=== PATIENT | female | born 1965 | race Caucasian/White ===

== ENCOUNTER 2023-11-24 16:36 | Observation (INO) ==
--- NOTE | 2023-11-24 16:41 | ED Triage Note ---
Date of Service November 24, 2023 Provider in Triage Author: Meghan Lujan History of Present Illness This patient was briefly evaluated while in triage. An abbreviated physical exam was performed. This patient is a 58-year-old Female who presents to the ED for evaluation of chest pain in epigastric region into mid back began at 1530 today. Pt denies cardiac history, reports no nausea or vomiting. Physical Exam Initial orders for labs and / or imaging were placed and patient was placed in the waiting area until a bed is available. Please see further documentation for the full ED course.
[2023-11-24] MEDS: FAMOTIDINE 20MG IV PUSH 20 MG/5 ML SYR IV STA (17:17)
[2023-11-24] MEDS: ALUMINUM/MAGNESIUM SUSP 30 ML UDC PO STA (17:17)
[2023-11-24 17:36] LABS: Basophils # (auto) 0.04 K/uL (0.00-0.20); Eosinophils # (auto) 0.44 K/uL (0.00-0.50); Eosinophils % (auto) 10.5 %; Hematocrit (blood only) 38.6 % (37.0-47.0); Hemoglobin 12.6 g/dl (12.0-16.0); Lymphocytes # (auto) 1.15 K/uL (1.20-3.40); Lymphocytes % (auto) 27.4 %; Mean Corpuscular Hemoglobin 32.1 pg (25.0-34.0); Mean Corpuscular Hgb Conc 32.6 g/dL (32.0-36.0); Mean Corpuscular Volume 98.2 fL (80.0-100.0); Mean Platelet Volume 10.4 fL (9.4-12.4); Monocytes # (auto) 0.32 K/uL (0.11-0.59); Monocytes % (auto) 7.6 %; Neutrophils # (auto) 2.25 K/uL (1.40-6.50); Neutrophils % (auto) 53.5 %; Platelet Count 237 K/uL (130-400); RDW Coefficient of Variation 11.9 % (11.5-14.5); RDW Standard Deviation 43.8 fL (36.4-46.3); Red Blood Count 3.93 M/uL (4.20-5.40)
[2023-11-24 17:59] LABS: Albumin Globulin Ratio 1.7 (0.9-2); Albumin Level 4.2 gm/dl (3.4-5.0); BUN Creatinine Ratio 20.5 (10-20); Bilirubin,Total 0.3 mg/dl (0.2-1.0); Calcium 9.4 mg/dl (8.6-10.3); Creatinine Clr Calc Pharmacy 57.6 ml/min; Est GFR (African American) 88.8 ml/min; Est GFR (Non-African American) 76.6 ml/min; Globulin 2.5 gm/dl (2.5-4.0); Potassium 4.1 mmol/L (3.5-5.1); Total Protein 6.7 gm/dl (6.0-8.3)
[2023-11-24 18:04] LABS: Troponin I High Sensitivity 3.2 pg/ml (0-14)
--- NOTE | 2023-11-24 18:29 | XRay Report ---
SINGLE VIEW CHEST CLINICAL HISTORY: Atypical chest pain. FINDINGS: A PA chest radiograph is compared to chest x-ray and chest CT dated 06/15/2023. The cardiome diastinal silhouette is unremarkable. The lungs and pleural spaces are clear. No pneumothorax is seen . The bony thorax is grossly intact. There is mild thoracic scoliosis. IMPRESSION: No active disease in the chest. ACT 112: Negative or not required by law. Electronically signed by: Garrett Landrum M.D. 11/24/2023 6:27 PM
--- NOTE | 2023-11-24 20:35 | Emergency Department Note ---
Impression & Plan Abdominal pain, Acute pancreatitis ED Provider Note NAME: MERLENE HOOVER AGE: 58 SEX: F : 1965 ARRIVES VIA: Walk-In INFORMANT: Patient ED PROVIDER(S): Oz Winters DO CHIEF COMPLAINT: abdominal pain HPI: Patient is a 58-year-old female who presents to the ER for epigastric abdominal pain associated with an upset stomach. She notes it started around 3 PM. She tried to eat afterwards and felt significantly worse. She denies any headache or change in vision. No chest pain or shortness of breath. No arm or jaw pain. Is nonexertional. She notes it has been constant and sharp stabbing goes through to the back. Does have a history of previous gastric bypass. No dysuria, urgency, or frequency. No other exacerbating or remitting factors. ADDITIONAL HISTORY OBTAINED: Per HPI Chronic Medical/Social Conditions Affecting Care: Per HPI PAST MEDICAL HISTORY:See Below PAST SURGICAL HISTORY:See Below FAMILY HISTORY:See Below SOCIAL HISTORY:See Below HOME MEDICATIONS:See Below ALLERGIES:See Below VITALS:See Below PHYSICAL EXAMINATION: GENERAL: Sitting up in bed, alert, well appearing, well nourished, no distress, non-toxic EYE EXAM: normal conjunctiva. OROPHARYNX: no exudate, no erythema, lips, buccal mucosa, and tongue normal and mucous membranes are moist NECK: supple, no nuchal rigidity, no adenopathy, non-tender LUNGS: Clear to auscultation. Normal chest wall mechanics HEART: no murmurs, S1 normal and S2 normal ABDOMEN: abdomen soft, tender palpation epigastric region, normo-active bowel sounds, no masses, no rebound or guarding. UPPER EXTREMITIES: upper extremities are grossly normal. LOWER EXTREMITIES: No pitting edema. Calves are equal bilateral NEURO EXAM: Normal sensorium, cranial nerves II-XII grossly intact, normal speech, no gross weakness of arms, no gross weakness of legs. MEDICAL DECISION MAKING: Patient is a 58-year-old female with a past medical history a who presents the ER for above-stated complaint. IV was established blood work was obtained. Labs showed mild leukopenia at 4.3. No significant anemia. BMP along with LFTs bilirubin was unremarkable. Troponin was negative with symptoms have been present since around 3 AM. Lipase was elevated at 400. History is consistent with pancreatitis. She is tender in the epigastric region. UA was clean. CT abdomen pelvis was read by radiology showed no acute pathology. X-ray was unremarkable. Patient was given IV fluids, Zofran and morphine. She is updated bedside. Discussed the case with the hospitalist for further evaluation management treatment. Consults/Care Managements Discussions: Per [facility] Triage Nursing notes reviewed. Limited review of prior medical records performed Vital Signs: reviewed and remarkable for no significant abnormalities Differential diagnosis: Differential diagnoses includes but is not limited to gastritis, peptic ulcer disease, GERD, gallbladder disease, pancreatitis, small bowel obstruction, appendicitis, diverticulitis, hernia, urinary tract infection, torsion, [/ectopic (if female)], perforation, trauma, infectious. ER treatment provided: See below Diagnostics interpreted by me include EKG and cardiac monitoring as listed below: -Cardiac Monitoring: An order was placed for continuous cardiac monitoring. The monitor shows a rate of 70 with sinus rhythm. -ECG: Sinus rhythm rate of 68 Normal axis No PVCs QTc 418 -Laboratory studies:Interpreted by me as stated above in MDM and shown below. Imaging studies: Xrays: As interpreted by me: Portable AP upright 1 view of the chest shows no focal infiltrate CTs show: CT abdomen pelvis shows no acute pathology Procedures:none Critical Care: None Past Med/Surg History Surgical History (Updated 06/04/21 @ 07:47 by Tiffanie Rizvi) Hx of tonsillectomy H/O oral surgery History of gynecologic surgery uterine surgery History of gastric surgery Family History (Updated 06/04/21 @ 07:49 by Tiffanie Rizvi) Father Hypertension Bone cancer Diabetes Mother Hypertension Brother Diabetes Social History (Updated 06/10/21 @ 15:22 by LORENA Mota) Smoking Status: Never smoker Second Hand Exposure: Yes; Do You Dip or Chew Tobacco: No; Hx Alcohol Use: Yes Hx Substance Use: No Preferred Language: Monegasque Communication Ability: Effective Pourer Metal Required: No Beliefs That Will Affect Care: None Current Living Situation: Spouse Feels Safe at Home: Yes Safety Concerns: Feels Safe At This Time Assistive Devices: None Allergies Allergies Allergy/AdvReac Type Severity Reaction Status Date / Time erythromycin base Allergy Intermediate FULL BODY Verified 06/15/23 22:05 REDDENED RASH Home Meds Home Medications Medication Instructions Recorded Confirmed bupropion HCl 150 mg tablet,12 hr 150 mg PO AMHS 06/10/21 11/24/23 sustained-release (Wellbutrin SR) calcium citrate 250 mg PO BID 06/15/23 11/24/23 cholecalciferol (vitamin D3) 50 50 mcg PO DAILY 06/15/23 11/24/23 mcg (2,000 unit) capsule (Vitamin D3) cyanocobalamin (vitamin B-12) 2,500 mcg sublingual DAILY 06/15/23 11/24/23 2,500 mcg sublingual tablet (Vitamin B-12) duloxetine 30 mg capsule,delayed 30 mg PO DAILY 06/15/23 11/24/23 release negffhus-ttu-[id number]-[id number]-Ca carb-vit K 1 tab PO BID 06/15/23 11/24/23 18 mg iron-400 mcg-500 mg tablet psyllium husk 0.52 gram capsule 1.04 g PO HS 06/15/23 11/24/23 amoxicillin 875 mg-potassium 1 tab PO AMHS 11/24/23 11/24/23 clavulanate 125 mg tablet cyclobenzaprine 10 mg tablet 10 mg PO UD PRN Muscle Spasm 11/24/23 11/24/23 pantoprazole 40 mg tablet,delayed 40 mg PO BID 11/24/23 11/24/23 release tirzepatide 2.5 mg/0.5 mL 2.5 mg subcut WK 11/24/23 11/24/23 subcutaneous pen injector (Chrissy) Results & Data (ED) Vital Signs Vital Signs - 24 hr 11/24/23 16:40 11/24/23 19:16 11/24/23 19:51 Temperature 36.8 C Temperature Source Temporal Artery Scan Pulse Rate 81 Pulse Rate [Finger] 69 Pulse Rate from SpO2 Sensor Respiratory Rate 20 16 Respiratory Effort / Characteristics Non-Labored Spontaneous Non-Labored Respiratory Depth Normal Normal Respiratory Pattern Regular Blood Pressure 103/65 Blood Pressure [Right Arm] 92/57 L Blood Pressure Mean 77 Blood Pressure Mean [Right Arm] 68 Pulse Oximetry 100 100 Oxygen Delivery Method Room Air Room Air Room Air Sepsis New/Unexplained Change in Mental Status No Sepsis Action Taken by Nursing No Action Required 11/24/23 19:51 11/24/23 19:51 11/24/23 19:51 Temperature Temperature Source Pulse Rate 75 77 Pulse Rate [Finger] Pulse Rate from SpO2 Sensor 79 Respiratory Rate 14 Respiratory Effort / Characteristics Respiratory Depth Respiratory Pattern Blood Pressure Blood Pressure [Right Arm] Blood Pressure Mean Blood Pressure Mean [Right Arm] Pulse Oximetry 100 100 Oxygen Delivery Method Room Air Sepsis New/Unexplained Change in Mental Status Sepsis Action Taken by Nursing 11/24/23 19:51 11/24/23 19:54 11/24/23 20:00 Temperature Temperature Source Pulse Rate 68 Pulse Rate [Finger] 75 Pulse Rate from SpO2 Sensor 70 Respiratory Rate 18 17 Respiratory Effort / Characteristics Respiratory Depth Respiratory Pattern Blood Pressure 118/79 113/49 L Blood Pressure [Right Arm] 118/79 Blood Pressure Mean 88 70 Blood Pressure Mean [Right Arm] 92 Pulse Oximetry 100 67 L Oxygen Delivery Method Room Air Sepsis New/Unexplained Change in Mental Status Sepsis Action Taken by Nursing 11/24/23 20:01 11/24/23 20:32 11/24/23 21:00 Temperature Temperature Source Pulse Rate 68 69 74 Pulse Rate [Finger] Pulse Rate from SpO2 Sensor 68 69 76 Respiratory Rate 12 14 18 Respiratory Effort / Characteristics Respiratory Depth Respiratory Pattern Blood Pressure 107/69 Blood Pressure [Right Arm] Blood Pressure Mean 81 Blood Pressure Mean [Right Arm] Pulse Oximetry 100 99 99 Oxygen Delivery Method Sepsis New/Unexplained Change in Mental Status Sepsis Action Taken by Nursing 11/24/23 21:30 11/24/23 22:00 Temperature Temperature Source Pulse Rate 67 71 Pulse Rate [Finger] Pulse Rate from SpO2 Sensor 67 71 Respiratory Rate 14 23 Respiratory Effort / Characteristics Respiratory Depth Respiratory Pattern Blood Pressure 113/57 L 121/80 Blood Pressure [Right Arm] Blood Pressure Mean 75 93 Blood Pressure Mean [Right Arm] Pulse Oximetry 100 100 Oxygen Delivery Method Sepsis New/Unexplained Change in Mental Status Sepsis Action Taken by Nursing Laboratory Data 11/24/23 17:05 11/24/23 17:05 Lab Results 11/24/23 Range/Units 17:05 WBC 4.20 L (4.8-10.8) K/ul RBC 3.93 L (4.20-5.40) M/uL Hgb 12.6 (12.0-16.0) g/dl Hct 38.6 (37.0-47.0) % MCV 98.2 (80.0-100.0) fL MCH 32.1 (25.0-34.0) pg MCHC 32.6 (32.0-36.0) g/dL RDW Std Deviation 43.8 (36.4-46.3) fL RDW Coeff of Derek 11.9 (11.5-14.5) % Plt Count 237 (130-400) K/uL MPV 10.4 (9.4-12.4) fL Immature Gran % (Auto) 0.0 % Neut % (Auto) 53.5 % Lymph % (Auto) 27.4 % [place] % (Auto) 7.6 % Eos % (Auto) 10.5 % Baso % (Auto) 1.0 % Neut # (Auto) 2.25 (1.40-6.50) K/uL Lymph # (Auto) 1.15 L (1.20-3.40) K/uL [place] # (Auto) 0.32 (0.11-0.59) K/uL Eos # (Auto) 0.44 (0.00-0.50) K/uL Baso # (Auto) 0.04 (0.00-0.20) K/uL Immature Gran # (Auto) 0.00 L (0.01-0.20) K/uL Sodium 137 (136-145) mmol/L Potassium 4.1 (3.5-5.1) mmol/L Chloride 104 (98-107) mmol/L Carbon Dioxide 29 (21-32) mmol/L Anion Gap 4 (3-11) BUN 17 (6-23) mg/dl Creatinine 0.83 (0.6-1.2) mg/dl Est Cr Clr Drug Dosing 57.6 ml/min Est GFR ( Amer) 88.8 ml/min Est GFR (Non-Af Amer) 76.6 ml/min BUN/Creatinine Ratio 20.5 H (10-20) Glucose 128 H (70-99(Fasting)) mg/dl Calcium 9.4 (8.6-10.3) mg/dl Total Bilirubin 0.3 (0.2-1.0) mg/dl AST 32 (13-39) U/L ALT 43 (7-52) U/L Alkaline Phosphatase 82 (34-104) U/L Troponin I High Sens 3.2 (0-14) pg/ml Total Protein 6.7 (6.0-8.3) gm/dl Albumin 4.2 (3.4-5.0) gm/dl Globulin 2.5 (2.5-4.0) gm/dl Albumin/Globulin Ratio 1.7 (0.9-2) Lipase 381 H (11-82) U/L Administered Medications Lactated Ringer's (Lr) 1,000 mls @ 100 mls/hr IV .Q10H ONE Stop: 11/25/23 07:39 Last Admin: 11/25/23 00:03 Dose: 100 mls/hr Documented By: NOBLE Pantoprazole Sodium (Pantoprazole 40 Mg Tab) 40 mg PO BID ARDEN Stop: 12/24/23 23:32 Last Admin: 11/25/23 00:03 Dose: 40 mg Documented By: NOBLE Discontinued Medications Al Hydrox/Mg Hydrox/Simethicone (Aluminum/Magnesium Susp 30 Ml Udc) 15 ml PO NOW STA Stop: 11/24/23 16:44 Last Admin: 11/24/23 17:17 Dose: 15 ml Documented By: BINDU Famotidine (Pepcid 20mg Iv Push) 20 mg in 5 mls @ 2.5 mls/min IV NOW STA Stop: 11/24/23 16:44 Last Admin: 11/24/23 17:17 Dose: 2.5 mls/min Documented By: BINDU Sodium Chloride (Nss) 1,000 mls @ 999 mls/hr IV .Q1H1M ONE Stop: 11/24/23 21:33 Last Infusion: 11/25/23 00:14 Dose: Infused Documented By: Admin: 11/24/23 21:33 Dose: 999 mls/hr Documented By: ZULEMA Ioversol (Optiray 320 100ml) 93 ml IV ONCE ONE Stop: 11/24/23 20:40 Last Admin: 11/24/23 20:40 Dose: 93 ml Documented By: MENA Morphine Sulfate (Morphine Sulfate 4 Mg/Ml 1 Ml Carp\Vial) 4 mg IV NOW STA Stop: 11/24/23 21:10 Last Admin: 11/24/23 21:34 Dose: 4 mg Documented By: ZULEMA Ondansetron HCl (Ondansetron Inj 2 Mg/Ml 2 Ml Vial) 4 mg IV NOW STA Stop: 11/24/23 20:34 Last Admin: 11/24/23 21:34 Dose: 4 mg Documented By: ZULEMA Imaging Data Radiologist's Impression: Chest X-Ray 11/24/23 16:41 SINGLE VIEW CHEST CLINICAL HISTORY: Atypical chest pain. FINDINGS: A PA chest radiograph is compared to chest x-ray and chest CT dated 06/15/2023. The cardiomediastinal silhouette is unremarkable. The lungs and pleural spaces are clear. No pneumothorax is seen. The bony thorax is grossly intact. There is mild thoracic scoliosis. IMPRESSION: No active disease in the chest. ACT 112: Negative or not required by law. Electronically signed by: Garrett Landrum M.D. 11/24/2023 6:27 PM Abdomen/Pelvis CT 11/24/23 20:32 Exam(s): CT ABDOMEN + PELVIS With Contrast IV Amt: OPTIRAY 320 93ML EXAM: CT Abdomen and Pelvis With Intravenous Contrast CLINICAL HISTORY: Reason for exam: abd pain ? Pancreatitis. TECHNIQUE: Axial computed tomography images of the abdomen and pelvis with intravenous contrast. CTDI is 7.15 mGy and DLP is 338.09 mGy-cm. Automated exposure control was utilized for the study. A dose lowering technique was utilized adhering to the principles of ALARA. CONTRAST: Patient received OPTIRAY 320 93ML of IV contrast COMPARISON: No relevant prior studies available. FINDINGS: Lung bases: Unremarkable. No mass. No consolidation. ABDOMEN: Liver: Unremarkable. No mass. Gallbladder and bile ducts: Unremarkable. No calcified stones. No ductal dilation. Pancreas: Unremarkable. No mass. No ductal dilation. Spleen: Unremarkable. No splenomegaly. Adrenals: Unremarkable. No mass. Kidneys and ureters: Unremarkable. No solid mass. No hydronephrosis. Stomach and bowel: Wall thickening of small bowel, correlate for enteritis. Ethan-en-Y gastric bypass. No obstruction of the jejunojejunostomy. PELVIS: Appendix: Appendectomy. Bladder: Unremarkable. No mass. Reproductive: Unremarkable as visualized. ABDOMEN and PELVIS: Intraperitoneal space: Unremarkable. No free air. No significant fluid collection. Bones/joints: Degenerative changes of the spine. No acute fracture. No dislocation. Soft tissues: Unremarkable. Vasculature: Unremarkable. No abdominal aortic aneurysm. Lymph nodes: Unremarkable. No enlarged lymph nodes. IMPRESSION: 1. Wall thickening of small bowel, correlate for enteritis. 2. Ethan-en-Y gastric bypass. No obstruction of the jejunojejunostomy. Electronically signed by: Mihai Ragland MD 11/24/23 20:54 PM Gallbladder Ultrasound 11/24/23 22:05 Exam(s): US GALLBLADDER EXAM: US Abdomen Limited, Gallbladder CLINICAL HISTORY: Reason for exam: abd pain. TECHNIQUE: Real-time ultrasound of the right upper quadrant with image documentation. COMPARISON: Abdominal ultrasound from November 24, 2023 FINDINGS: Liver: The liver is mildly fatty infiltrated but normal in size measuring 14.5 cm. No focal liver mass lesion is seen. The portal vein is patent with normal hepatopetal flow. Gallbladder: The gallbladder is distended but nondilated. No gallstones, wall thickening, or surrounding fluid. Common bile duct: The common bile duct is nondilated measuring 5 mm. Pancreas: The pancreas is most obscured by bowel gas. Right kidney: The right kidney measures 8.6 cm. Free fluid: There is a trace amount of free fluid adjacent to the liver. IMPRESSION: No acute findings in the right upper quadrant. Electronically signed by: Raul Vaca MD 11/25/23 00:01 AM Discharge Plan Visit Data Chief Complaint: Chest Pain Stated Complaint: CENTRAL CHEST PAIN/GOES THROUGH MIDDLE OF BACK ED Provider: Oz Winters Discharge Problem: Abdominal pain, Acute pancreatitis Patient Disposition: Admitted As Inpatient Discharge Instructions Interventions: ED Discharge Assessment Last Done: 11/24/23 22:45 Discharge Problem: Abdominal pain Qualifiers: Abdominal location: unspecified location Qualified Code(s): R10.9 - Unspecified abdominal pain Acute pancreatitis Qualifiers: Pancreatitis type: unspecified pancreatitis type Acute pancreatitis complication: unspecified Qualified Code(s): K85.90 - Acute pancreatitis without necrosis or infection, unspecified
[2023-11-24] MEDS: OPTIRAY 320 100ml IV ONE (20:40)
--- NOTE | 2023-11-24 20:55 | CT Scan Report ---
Exam(s): CT ABDOMEN + PELVIS With Contrast IV Amt: OPTIRAY 320 93ML EXAM: CT Abdomen and Pelvis With Intravenous Contrast CLINICAL HISTORY: Reason for exam: abd pain ? Pancreatitis. TECHNIQUE: Axial computed tomography images of the abdomen and pelvis with intravenous contrast. CTDI is 7.15 mGy and DLP is 338.09 mGy-cm. Automated exposure control was utilized for the study. A dose lowering technique was utilized adhering to the principles of ALARA. CONTRAST: Patient received OPTIRAY 320 93ML of IV contrast COMPARISON: No relevant prior studies available. FINDINGS: Lung bases: Unremarkable. No mass. No consolidation. ABDOMEN: Liver: Unremarkable. No mass. Gallbladder and bile ducts: Unremarkable. No calcified stones. No ductal dilation. Pancreas: Unremarkable. No mass. No ductal dilation. Spleen: Unremarkable. No splenomegaly. Adrenals: Unremarkable. No mass. Kidneys and ureters: Unremarkable. No solid mass. No hydronephrosis. Stomach and bowel: Wall thickening of small bowel, correlate for enteritis. Ethan-en-Y gastric bypass. No obstruction of the jejunojejunostomy. PELVIS: Appendix: Appendectomy. Bladder: Unremarkable. No mass. Reproductive: Unremarkable as visualized. ABDOMEN and PELVIS: Intraperitoneal space: Unremarkable. No free air. No significant fluid collection. Bones/joints: Degenerative changes of the spine. No acute fracture. No dislocation. Soft tissues: Unremarkable. Vasculature: Unremarkable. No abdominal aortic aneurysm. Lymph nodes: Unremarkable. No enlarged lymph nodes. IMPRESSION: 1. Wall thickening of small bowel, correlate for enteritis. 2. Ethan-en-Y gastric bypass. No obstruction of the jejunojejunostomy. Electronically signed by: Mihai Ragland MD 11/24/23 20:54 PM
[2023-11-24] MEDS: SODIUM CHLORIDE 0.9% 1,000 ML IV ONE (21:33)
[2023-11-24] MEDS: MoRPHine SULFATE 4 MG/ML 1 ML CARP\\VIAL IV STA (21:34)
[2023-11-24] MEDS: ONDANSETRON INJ 2 MG/ML 2 ML VIAL IV STA (21:34)
--- NOTE | 2023-11-24 22:05 | History & Physical Report ---
Date of Service November 24, 2023 Assessment & Plan (1) Abdominal pain: Plan: With lipase elevation (elevation noted on other occasions) Possibly from enteritis/diarrheal illness rule out C. difficile given recent antibiotic Rx CT imaging negative for pancreatitis Reactive hypoglycemia on Mounjaro history gastric bypass Patient questioning DM2 diagnosis in outpatient EMR records. Outpatient Endocrinology notes do not mention DM2 diagnosis. Mounjaro given for reactive hypoglycemia post gastric bypass as per patient. All outpatient hemoglobin A1cs on record less than 5.6. hx NAFLD hypothyroidism, currently not on maintenance medications, euthyroid as of out patient TSH from 2 years ago anxiety/mood disorder, stable OBS GMF Analgesia Stool C. difficile Supportive management for enteritis if C. difficile negative GI consult if with worsening abdominal pain Staff message sent to PCP to clarify DM2 diagnosis in patient's EMR. DVT prophylaxis. Lovenox subcu Full code Text document was generated using [employer] voice recognition software. It may contain grammatical or spelling errors. Kindly contact undersigned for clarification of any documentation item in question. History of Present Illness Chief Complaint: Abdominal pain Primary Care Provider: Bin Neely MD History obtained from patient, family, and records. Medical history significant for history gastric bypass, NAFLD, hypothyroidism, reactive hypoglycemia on Mounjaro, STELLA not on CPAP, anxiety/mood disorder. Few weeks history of sinus congestion symptoms and postnasal drip. Occasional burning sensation in the throat. Patient seen at PCPs office last week. Augmentin course prescribed for possible sinusitis. Protonix prescribed for possible GERD. Diarrhea symptoms noted at home without unusual abdominal pain. GERD symptoms actually improved as per patient. No fever, no chills. This afternoon, patient noted epigastric discomfort going to her back. Some nausea symptoms. No chest pain, no SOB. Patient brought to ER by for evaluation. 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 Allergies Allergy/AdvReac Type Severity Reaction Status Date / Time erythromycin base Allergy Intermediate FULL BODY Verified 06/15/23 22:05 REDDENED RASH Home Medications Medication Instructions Recorded Confirmed Type bupropion HCl 150 mg tablet,12 hr 150 mg PO AMHS 06/10/21 11/24/23 History sustained-release (Wellbutrin SR) calcium citrate 250 mg PO BID 06/15/23 11/24/23 History cholecalciferol (vitamin D3) 50 50 mcg PO DAILY 06/15/23 11/24/23 History mcg (2,000 unit) capsule (Vitamin D3) cyanocobalamin (vitamin B-12) 2,500 mcg sublingual DAILY 06/15/23 11/24/23 History 2,500 mcg sublingual tablet (Vitamin B-12) duloxetine 30 mg capsule,delayed 30 mg PO DAILY 06/15/23 11/24/23 History release [id number]-ezl-pfnk-FA-Ca carb-vit K 1 tab PO BID 06/15/23 11/24/23 History 18 mg iron-400 mcg-500 mg tablet psyllium husk 0.52 gram capsule 1.04 g PO HS 06/15/23 11/24/23 History amoxicillin 875 mg-potassium 1 tab PO AMHS 11/24/23 11/24/23 History clavulanate 125 mg tablet cyclobenzaprine 10 mg tablet 10 mg PO UD PRN Muscle Spasm 11/24/23 11/24/23 History pantoprazole 40 mg tablet,delayed 40 mg PO BID 11/24/23 11/24/23 History release tirzepatide 2.5 mg/0.5 mL 2.5 mg subcut WK 11/24/23 11/24/23 History subcutaneous pen injector (Kennyunvanessa) Past Med/Surg History Surgical History Hx of tonsillectomy H/O oral surgery History of gynecologic surgery uterine surgery History of gastric surgery Family History Father Hypertension Bone cancer Diabetes Mother Hypertension Brother Diabetes Social History Smoking Status: Never smoker Second Hand Exposure: Yes; Do You Dip or Chew Tobacco: No; Hx Alcohol Use: Yes Hx Substance Use: No Preferred Language: Italian Communication Ability: Effective Cancer Registry Coordinator Required: No Beliefs That Will Affect Care: None Current Living Situation: Spouse Feels Safe at Home: Yes Safety Concerns: Feels Safe At This Time Assistive Devices: None Review of Systems Review of Systems: As per HPI, all other systems reviewed and negative Physical Exam Physical Exam: GENERAL: Comfortable, pleasant, no respiratory distress SKIN: Normal color, warm HEENT: [place] palpebral conjunctivae, no ptosis, dry buccal mucosa NECK : Supple, no tenderness CHEST : CTA, no tenderness HEART : RRR, no obvious murmurs ABDOMEN: no distention, epigastric tenderness EXTREMITIES : No LE swelling/tenderness, no other conspicuous deformities noted NEUROLOGIC : Coherent, no facial asymmetry, no other gross focality Results & Data Results & Data Vital Signs (Past 12 Hours) Vital Signs Temp Pulse Pulse Resp BP BP Pulse Ox 11/24/23 19:54 75 18 118/79 100 11/24/23 19:51 75 11/24/23 19:51 100 11/24/23 19:51 11/24/23 19:16 69 16 92/57 L 100 11/24/23 16:40 36.8 C 81 20 103/65 100 O2 Del Method 11/24/23 19:54 Room Air 11/24/23 19:51 11/24/23 19:51 Room Air 11/24/23 19:51 Room Air 11/24/23 19:16 Room Air 11/24/23 16:40 Room Air Laboratory Results Laboratory Results WBC 4.20 K/ul (4.8-10.8) L 11/24/23 17:05 RBC 3.93 M/uL (4.20-5.40) L 11/24/23 17:05 Hgb 12.6 g/dl (12.0-16.0) 11/24/23 17:05 Hct 38.6 % (37.0-47.0) 11/24/23 17:05 MCV 98.2 fL (80.0-100.0) 11/24/23 17:05 MCH 32.1 pg (25.0-34.0) 11/24/23 17:05 MCHC 32.6 g/dL (32.0-36.0) 11/24/23 17:05 RDW Std Deviation 43.8 fL (36.4-46.3) 11/24/23 17:05 RDW Coeff of Derek 11.9 % (11.5-14.5) 11/24/23 17:05 Plt Count 237 K/uL (130-400) 11/24/23 17:05 MPV 10.4 fL (9.4-12.4) 11/24/23 17:05 Immature Gran % (Auto) 0.0 % 11/24/23 17:05 Neut % (Auto) 53.5 % 11/24/23 17:05 Lymph % (Auto) 27.4 % 11/24/23 17:05 [place] % (Auto) 7.6 % 11/24/23 17:05 Eos % (Auto) 10.5 % 11/24/23 17:05 Baso % (Auto) 1.0 % 11/24/23 17:05 Neut # (Auto) 2.25 K/uL (1.40-6.50) 11/24/23 17:05 Lymph # (Auto) 1.15 K/uL (1.20-3.40) L 11/24/23 17:05 [place] # (Auto) 0.32 K/uL (0.11-0.59) 11/24/23 17:05 Eos # (Auto) 0.44 K/uL (0.00-0.50) 11/24/23 17:05 Baso # (Auto) 0.04 K/uL (0.00-0.20) 11/24/23 17:05 Immature Gran # (Auto) 0.00 K/uL (0.01-0.20) L 11/24/23 17:05 Sodium 137 mmol/L (136-145) 11/24/23 17:05 Potassium 4.1 mmol/L (3.5-5.1) 11/24/23 17:05 Chloride 104 mmol/L (98-107) 11/24/23 17:05 Carbon Dioxide 29 mmol/L (21-32) 11/24/23 17:05 Anion Gap 4 (3-11) 11/24/23 17:05 BUN 17 mg/dl (6-23) 11/24/23 17:05 Creatinine 0.83 mg/dl (0.6-1.2) 11/24/23 17:05 Est Cr Clr Drug Dosing 57.6 ml/min 11/24/23 17:05 Est GFR ( Amer) 88.8 ml/min 11/24/23 17:05 Est GFR (Non-Af Amer) 76.6 ml/min 11/24/23 17:05 BUN/Creatinine Ratio 20.5 (10-20) H 11/24/23 17:05 Glucose 128 mg/dl (70-99(Fasting)) H 11/24/23 17:05 Calcium 9.4 mg/dl (8.6-10.3) 11/24/23 17:05 Total Bilirubin 0.3 mg/dl (0.2-1.0) 11/24/23 17:05 AST 32 U/L (13-39) 11/24/23 17:05 ALT 43 U/L (7-52) 11/24/23 17:05 Alkaline Phosphatase 82 U/L (34-104) 11/24/23 17:05 Troponin I High Sens 3.2 pg/ml (0-14) 11/24/23 17:05 Total Protein 6.7 gm/dl (6.0-8.3) 11/24/23 17:05 Albumin 4.2 gm/dl (3.4-5.0) 11/24/23 17:05 Globulin 2.5 gm/dl (2.5-4.0) 11/24/23 17:05 Albumin/Globulin Ratio 1.7 (0.9-2) 11/24/23 17:05 Lipase 381 U/L (11-82) H 11/24/23 17:05 Impressions Chest X-Ray 11/24/23 16:41 SINGLE VIEW CHEST CLINICAL HISTORY: Atypical chest pain. FINDINGS: A PA chest radiograph is compared to chest x-ray and chest CT dated 06/15/2023. The cardiomediastinal silhouette is unremarkable. The lungs and pleural spaces are clear. No pneumothorax is seen. The bony thorax is grossly intact. There is mild thoracic scoliosis. IMPRESSION: No active disease in the chest. ACT 112: Negative or not required by law. Electronically signed by: Garrett Landrum M.D. 11/24/2023 6:27 PM Abdomen/Pelvis CT 11/24/23 20:32 Exam(s): CT ABDOMEN + PELVIS With Contrast IV Amt: OPTIRAY 320 93ML EXAM: CT Abdomen and Pelvis With Intravenous Contrast CLINICAL HISTORY: Reason for exam: abd pain ? Pancreatitis. TECHNIQUE: Axial computed tomography images of the abdomen and pelvis with intravenous contrast. CTDI is 7.15 mGy and DLP is 338.09 mGy-cm. Automated exposure control was utilized for the study. A dose lowering technique was utilized adhering to the principles of ALARA. CONTRAST: Patient received OPTIRAY 320 93ML of IV contrast COMPARISON: No relevant prior studies available. FINDINGS: Lung bases: Unremarkable. No mass. No consolidation. ABDOMEN: Liver: Unremarkable. No mass. Gallbladder and bile ducts: Unremarkable. No calcified stones. No ductal dilation. Pancreas: Unremarkable. No mass. No ductal dilation. Spleen: Unremarkable. No splenomegaly. Adrenals: Unremarkable. No mass. Kidneys and ureters: Unremarkable. No solid mass. No hydronephrosis. Stomach and bowel: Wall thickening of small bowel, correlate for enteritis. Ethan-en-Y gastric bypass. No obstruction of the jejunojejunostomy. PELVIS: Appendix: Appendectomy. Bladder: Unremarkable. No mass. Reproductive: Unremarkable as visualized. ABDOMEN and PELVIS: Intraperitoneal space: Unremarkable. No free air. No significant fluid collection. Bones/joints: Degenerative changes of the spine. No acute fracture. No dislocation. Soft tissues: Unremarkable. Vasculature: Unremarkable. No abdominal aortic aneurysm. Lymph nodes: Unremarkable. No enlarged lymph nodes. IMPRESSION: 1. Wall thickening of small bowel, correlate for enteritis. 2. Ethan-en-Y gastric bypass. No obstruction of the jejunojejunostomy. Electronically signed by: Mihai Ragland MD 11/24/23 20:54 PM Diagnostic Findings EKG as per my interpretation : Rate 70, NSR, normal axis, no ischemia (1) Abdominal pain Abdominal location: unspecified location Qualified Code(s): R10.9 - Unspecified abdominal pain
[2023-11-24] MEDS ORDERED: oxyCODONE HCL IR 5 MG TAB (IMMEDIATE RELEASE) PO PRN (22:08)
[2023-11-24 23:05] LABS: Appearance Urine Clear (Clear); Bacteria Urine Automated None Seen (None Seen); Bilirubin Urine Negative (Negative); Blood Urine 1+ (Negative); Cast Urine Automated 0-2 /lpf (0-2); Color Urine Yellow; Epithelial Cell Urine Auto 0-2 /hpf (0-2); Glucose Urine UA Negative (Negative); Ketones Urine 1+ (Negative); Leukocyte Esterase Urine Negative (Negative); Nitrite Urine Negative (Negative); Protein Urine Negative (Negative); RBC Urine Automated 0-2 /hpf (0-2); Urobilinogen Urine Negative (Negative); WBC Urine Automated 0-5 /hpf (0-5); pH Urine 5.5 (4.5-7.5)
[2023-11-25] MEDS: PANTOprazole 40 MG TAB PO SCH (00:03)
[2023-11-25] MEDS: LACTATED RINGER'S 1,000 ML IV ONE (00:03)
--- NOTE | 2023-11-25 00:03 | Ultrasound Report ---
Exam(s): US GALLBLADDER EXAM: US Abdomen Limited, Gallbladder CLINICAL HISTORY: Reason for exam: abd pain. TECHNIQUE: Real-time ultrasound of the right upper quadrant with image documentation. COMPARISON: Abdominal ultrasound from November 24, 2023 FINDINGS: Liver: The liver is mildly fatty infiltrated but normal in size measuring 14.5 cm. No focal liver mass lesion is seen. The portal vein is patent with normal hepatopetal flow. Gallbladder: The gallbladder is distended but nondilated. No gallstones, wall thickening, or surrounding fluid. Common bile duct: The common bile duct is nondilated measuring 5 mm. Pancreas: The pancreas is most obscured by bowel gas. Right kidney: The right kidney measures 8.6 cm. Free fluid: There is a trace amount of free fluid adjacent to the liver. IMPRESSION: No acute findings in the right upper quadrant. Electronically signed by: Raul Vaca MD 11/25/23 00:01 AM
[2023-11-25 06:55] LABS: Basophils # (auto) 0.04 K/uL (0.00-0.20); Eosinophils % (auto) 10.3 %; Hematocrit (blood only) 33.6 % (37.0-47.0); Hemoglobin 11.2 g/dl (12.0-16.0); Immature Granulocytes # (auto) 0.01 K/uL (0.01-0.20); Immature Granulocytes % (auto) 0.3 %; Lymphocytes # (auto) 1.64 K/uL (1.20-3.40); Lymphocytes % (auto) 42.1 %; Mean Corpuscular Hemoglobin 32.3 pg (25.0-34.0); Mean Corpuscular Hgb Conc 33.3 g/dL (32.0-36.0); Mean Corpuscular Volume 96.8 fL (80.0-100.0); Mean Platelet Volume 9.8 fL (9.4-12.4); Monocytes # (auto) 0.35 K/uL (0.11-0.59); Neutrophils # (auto) 1.46 K/uL (1.40-6.50); Neutrophils % (auto) 37.3 %; Platelet Count 177 K/uL (130-400); RDW Coefficient of Variation 12.1 % (11.5-14.5); RDW Standard Deviation 43.1 fL (36.4-46.3); Red Blood Count 3.47 M/uL (4.20-5.40)
[2023-11-25 07:19] LABS: Albumin Globulin Ratio 1.7 (0.9-2); Albumin Level 3.4 gm/dl (3.4-5.0); BUN Creatinine Ratio 16.3 (10-20); Bilirubin,Total 0.4 mg/dl (0.2-1.0); Calcium 8.8 mg/dl (8.6-10.3); Creatinine Clr Calc Pharmacy 52.5 ml/min; Est GFR (African American) 85.1 ml/min; Est GFR (Non-African American) 73.4 ml/min; Potassium 4.5 mmol/L (3.5-5.1); Total Protein 5.4 gm/dl (6.0-8.3)
[2023-11-25] MEDS: ACETAMINOPHEN 325 MG TAB PO PRN (07:21)
[2023-11-25] MEDS: buPROPion SR 150 MG TABCR PO SCH (07:22)
[2023-11-25] MEDS: DULoxetine HCL 30 MG CAP PO SCH (07:22)
[2023-11-25] MEDS: PROMETHAZINE HCL 6.25 MG in SODIUM CHLORIDE 0.9% 50 ML IV PRN (07:57)
--- NOTE | 2023-11-25 11:22 | Gastrointestinal Consultation ---
Date of Consultation November 25, 2023 Assessment & Plan (1) Abdominal pain: Viral enteritis vs pancreatitis vs side effects from Mounjaro vs esophagitis vs PUD vs other -Given epigastric pain and elevated lipase, could treat like acute pancreatitis. Liquids as tolerated, IV fluid hydration. -Would obtain stool PCR given findings of enteritis and previous diarrhea symptoms. -Protonix 40 mg BID -Carafate 1 gm QID -Famotidine 20 mg BID -Consider outpatient EGD Supervising Physician Co-Signing Physician Notes Agree with SD Schneider as above Interviewed and examined independently and agree with above Abd: Soft, NT, ND, +BS Continue current therapy and supportive care History of Present Illness Reason for Consultation: post prandial abd pain ?enteritis in CT Attending Physician: Jake Gallegos MD History of Present Illness Patient is a 58 yo female with epigastric pain. She notes ongoing sinus congestion and postnasal drip for which she notes she was recently put on Protonix 40 mg BID & Augmentin for possible sinusitis. She has had ongoing burning in her esophagus over the past several weeks. She notes that she has post-prandial epigastric pain that has been worsening over time. She has intermittent elevation of lipase. She does take Mounjaro. She denies tobacco or NSAID use. She notes a day this week with diarrhea, but is not currently experiencing diarrhea. In the hospital, she had a CT that questioned enteritis. No evidence of pancreatitis on this scan. GB US unremarkable. H/H 11.2/33.6. Lipase 381. History significant for Ethan-en-y bypass. Allergies Allergy/AdvReac Type Severity Reaction Status Date / Time erythromycin base Allergy Intermediate FULL BODY Verified 06/15/23 22:05 REDDENED RASH Home Medications Medication Instructions Recorded Confirmed Type bupropion HCl 150 mg tablet,12 hr 150 mg PO AMHS 06/10/21 11/24/23 History sustained-release (Wellbutrin SR) calcium citrate 250 mg PO BID 06/15/23 11/24/23 History cholecalciferol (vitamin D3) 50 50 mcg PO DAILY 06/15/23 11/24/23 History mcg (2,000 unit) capsule (Vitamin D3) cyanocobalamin (vitamin B-12) 2,500 mcg sublingual DAILY 06/15/23 11/24/23 History 2,500 mcg sublingual tablet (Vitamin B-12) duloxetine 30 mg capsule,delayed 30 mg PO DAILY 06/15/23 11/24/23 History release dqmuwhfq-brz-iexk-FA-Ca carb-vit K 1 tab PO BID 06/15/23 11/24/23 History 18 mg iron-400 mcg-500 mg tablet psyllium husk 0.52 gram capsule 1.04 g PO HS 06/15/23 11/24/23 History amoxicillin 875 mg-potassium 1 tab PO AMHS 11/24/23 11/24/23 History clavulanate 125 mg tablet cyclobenzaprine 10 mg tablet 10 mg PO UD PRN Muscle Spasm 11/24/23 11/24/23 History pantoprazole 40 mg tablet,delayed 40 mg PO BID 11/24/23 11/24/23 History release tirzepatide 2.5 mg/0.5 mL 2.5 mg subcut WK 11/24/23 11/24/23 History subcutaneous pen injector (Chrissy) Patient History Surgical History Hx of tonsillectomy H/O oral surgery History of gynecologic surgery uterine surgery History of gastric surgery Family History Father Hypertension Bone cancer Diabetes Mother Hypertension Brother Diabetes Social History Smoking Status: Never smoker Second Hand Exposure: Yes; Do You Dip or Chew Tobacco: No; Hx Alcohol Use: Yes Hx Substance Use: No Preferred Language: Nepali Communication Ability: Effective 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 Beliefs That Will Affect Care: None Current Living Situation: Spouse Feels Safe at Home: Yes Safety Concerns: Feels Safe At This Time Assistive Devices: Glasses Review of Systems Constitutional: no fever and no chills Cardiovascular: no chest pain Gastrointestinal: + abdominal pain and + change in bowel h abits; no blood in stools Physical Exam Constitutional: well developed Respiratory: normal respiratory effort Cardiovascular: Rate/Rhythm: regular rate Gastrointestinal (Abdomen): normal bowel sounds, soft, nontender, no hepatosplenomegaly Results & Data Vital Signs (Past 12 Hours) Vital Signs Temp Pulse Resp BP Pulse Ox O2 Del Method 11/25/23 06:56 36.5 C 62 15 102/63 99 Room Air 11/24/23 23:45 36.6 C 91 H 18 105/43 L 93 Room Air PG Care Time/CCT Total # of Minutes Spent Total Time Spent with Patient: Total time spent is greater than 50% in coordination of care (as documented) at patient's floor/unit and/or counseling patient: Coding Level of Care Code 93437 IN/OBS CONSULT LVL 4,60M Diagnoses Abdominal pain R10.9 Abdominal location: unspecified location (1) Abdominal pain Abdominal location: unspecified location Qualified Code(s): R10.9 - Unspecified abdominal pain
[2023-11-25] MEDS: ENOXAPARIN INJ 40 MG/0.4 ML SYR SQ SCH (11:51)
[2023-11-25] MEDS: POLYETHYLENE (MIRALAX) 17 GM PACK PO PRN (13:25)
[2023-11-25] MEDS: SUCRALFATE 1 GM/10 ML UDC PO SCH (13:25)
[2023-11-25] MEDS ORDERED: MoRPHine SULFATE 2 MG/ML CARP IV PRN (14:03)
--- NOTE | 2023-11-25 14:04 | Hospitalist Progress Note ---
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 CT A/P negative for pancreatitis but possible enteritis. Had diarrhea few days back. Lipase 380. Seen by GI- recommendations noted. Will continue ivf, diet as tolerated, supportive treatment. On PPI, pepcid and carafate per GI and plan for OP EGD noted.Follow up labs in am. GI panel and C diff if she has diarrhea. H/o Ethan-en-Y gastric bypass- on Mounjaro Mood disorder- on bupropion/duloxetine DVT ppx- sc lovenox Dispo- pending symptomatic improvement Time spent- approx 35 mins Admission and Anticipated Discharge Date Admission Date: November 24, 2023 Subjective Patient was seen and examined at bedside. states she continues to have intermittent sharp abd pain. Ongoing for a week now, starts 30 mins after food intake and would subside in an hour. Had an episode of diarrhea on Tuesday. Has nausea and just got nausea medication. Tolerating clears. Review of Systems Review of Systems: All systems reviewed & are unremarkable except as noted in Subjective Physical Exam Physical Exam: General: Lying comfortably in bed, not in distress, on room air HEENT: EOMI, [place]IALU[place], MMM Chest: Clear breath sounds bilaterally, no wheezes or crackles CVS: Regular rate and rhythm, normal heart sounds, no murmur Abdomen: Soft, not distended, hyperactive bowel sounds Neuro: Awake, alert, oriented, conversing well, non focal Extremities: No cyanosis, clubbing or edema Results & Data Results & Data Vital Signs (Past 12 Hours) Vital Signs Temp Pulse Resp BP Pulse Ox O2 Del Method 11/25/23 06:56 36.5 C 62 15 102/63 99 Room Air (1) Acute pancreatitis Acute pancreatitis complication: unspecified Pancreatitis type: unspecified pancreatitis type Qualified Code(s): K85.90 - Acute pancreatitis without necrosis or infection, unspecified (2) Abdominal pain Abdominal location: unspecified location Qualified Code(s): R10.9 - Unspecified abdominal pain
[2023-11-25] MEDS: LACTATED RINGER'S 1,000 ML IV SCH (14:56)
--- OUTSIDE RECORDS SUMMARY | 2023-11-25 19:57 | External Medical Summary | Summary of Care ---
Author Name Unknown Organization [facility] Address [address] [place] [address] Phone [phone] Care Team Providers Care Lithopone Charger Name Role Phone Chin LAMB MD, Bin Truong Primary Care Provider [phone] Reason for Visit * Reason Comments Sinus Problem Encounter Details Date Type Department Care Team (Late st Contact Info) Description 11/16/2023 10:00 AM EDT Office Visit Family [facility] [address] [place] [address] Anshu Glynn MD [address] [place] [address] [place] [id number] Acute recurrent maxillary sinusitis*; Gastroesophageal reflux disease with esophagitis without hemorrhage Allergies Active Allergy Reactions Criticality Noted Date Comments Erythromycin Rash 06/02/2000 documented as of this encounter (statuses as of 11/16/2023) Medications Medication Sig Dispensed Refills Start Date End Date Status MULTIVITAMINS PO TABSIndications:Eso phageal reflux Take by mouth 2 times a day. 0 10/29/2005 Active VITAMIN D 2000 UNIT PO TABS daily 0 Active EXCEDRIN TENSION HEADACHE 500-65 MG PO TABS as needed 0 Active VITAMIN B-12 2500 MCG SL SUBL 5000mcg daily 0 Active ONETOUCH ULTRA BLUE STRPIndications:Pos tgastric surgery syndromes Use up to four times a day as directed 100 Strip 11 2014 Active albuterol (VENTOLIN HFA) 108 (90 BASE) MCG/ACT inhalerIndications: Dyspnea Inhale 2 Puffs by mouth 4 times a day. 1 Inhaler 3 12/30/2017 Active LORAzepam (ATIVAN) 0.5 MG TabletIndications:A nxiety state TAKE ONE TABLET BY MOUTH 2 TIMES A DAY NEEDED ANXIETY 60 Tab 0 02/15/2019 Active Ipratropium [place] 0.03 % Nasal Solution (Atrovent) Administer 2 Sprays into each nostril 2 times a day as needed for Rhinitis. 30 mL 12 05/06/2021 Active Calcium Citrate-Vitamin D3 315-6.25 MG-MCG Oral Tablet Take by mouth 2 times a day. 0 Active buPROPion HCl ER (SR) 150 MG Oral Tablet Extended Release 12 Hour (Wellbutrin SR) Take 1 Tablet by mouth in the morning and 1 Tablet before bedtime. 180 Tablet 2 12/11/2022 Active Triamcinolone Acetonide 0.1 % External Cream (Aristocort)Indicat ions:Rash and nonspecific skin eruption Apply to rash twice daily for two weeks. Avoid face and groin. Repeat as needed but give at least one week break before repeating. 454 g 1 01/10/2023 Active Mounjaro 2.5 MG/0.5ML Subcutaneous Solution Pen-injector (Tirzepatide)Indica tions:Type 2 diabetes mellitus with hemoglobin A1c goal of less than 7.0% ([facility]) Inject 2.5 mg under the skin once a week. 2 mL 11 06/15/2023 06/14/2024 Active Psyllium 0.52 GM Oral Capsule at bedtime. 0 06/15/2023 Active Cyclobenzaprine HCl 10 MG Oral Tablet (Flexeril)Indicatio ns:Cervical spondylosis Take 0.5-1 Tablets by mouth in the morning and 0.5-1 Tablets at noon and 0.5-1 Tablets before bedtime. 30 Tablet 5 06/20/2023 Active DULoxetine HCl 30 MG Oral Capsule Delayed Release Particles (Cymbalta) TAKE ONE CAPSULE BY MOUTH EVERY DAY IN THE MORNING 90 Capsule 3 08/15/2023 Active Amoxicillin-Pot Clavulanate 875-125 MG Oral Tablet (Augmentin)Indicati ons:Acute recurrent maxillary sinusitis Take 1 Tablet by mouth in the morning and 1 Tablet before bedtime. Do all this for 10 days. 20 Tablet 0 11/16/2023 11/26/2023 Active Pantoprazole Sodium 40 MG Oral Tablet Delayed Release (Protonix)Indicatio ns:Gastroesophageal reflux disease with esophagitis without hemorrhage one pill twice a day 30 minutes before meals. Do not crush, split or chew the tablet 60 Tablet 1 11/16/2023 Active documented as of this encounter (statuses as of 11/16/2023) Active Problems Problem Noted Date Diagnosed Date Type 2 diabetes mellitus with diabetic neuropath y 06/20/2023 Primary cutaneous marginal zone B-cell lymphoma 08/12/2020 Type 2 diabetes mellitus wit h hemoglobin A1c goal of less than 7.0% 06/13/2020 Lumbar radiculopathy 09/02/2011 Cervical spondylosis 09/02/2011 Pernicious anemia 07/13/2011 Other specified hypothyroidism 08/20/2009 Anxiety state 09/24/2008 Iron deficiency anemia 03/11/2008 Hypertrophic and atrophic condition of skin 06/09 ABDOMINAL/HIP PANNICULITIS 03/31/2005 ADVANCE DIRECTIVE INFORMATION 03/23/2005 Overview: No, Advance Directive brochure given to patient at prior appointment. 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 Abnormal results of liver function studies 05/05/2010 06/08/2018 Morbid obesity, BMI not known 06/07/2003 03/29/2017 Excessive menstruation 10/17/200006/08 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 08/2017 documented as of this encounter (statuses as of 11/16/2023) Immunizations Name Administration Dates Next Due COVID-19 mRNA, LNP-s, No Pre serve, 2-Dose Series (Pfizer) 11/21/2021,12/06/2020,11/15/2020 Hepatitis B Vaccine, Recombi nant, Adjuvanted, 20 mcg/mL (Heplisav-B) 03/14/2023 Hepatitis B, 20+ yrs 09/19/2023,05/16/2023 Pneumococcal Conjugate Vacci ne, 20-valent ([id number]) 03/14/2023 Pneumococcal Polysaccharide PPV23 (Pneumovax) 08/12/2009 Seasonal Influenza, PF, 6 M & above, IM , (FluLaval or Fluzone) 04/23/2023,04/15/2022,05/11/2021,04/26,04/25/2017 Seasonal Influenza, Quadriva lent, No Preserve, IM 05/01/2020,04/18/2019,04/26/2018 Seasonal Influenza, Split, I IV3, With Preserve, Inj 04/29/2016,05/05/2015,04/30/2014,04/25,06/08/2011,07/28/2010,05/11/2009 ,06/24/2006 TDAP (age 10 and older)(Boostrix) 03/14/2023 TDAP (age 11 and older)(Adacel) 09/26/2011,11/13 Zoster Vaccine Recombinant (Shingrix) 05/16/2023 ,03/14/2023 documented as of this encounter Social History Tobacco Use Types Packs/Day Years Used Date Smoking Tobacco: Never Smokeless Tobacco: Never Alcohol Use Standard Drinks/Week Comments Yes 0 (1 standard drink = 0.6 oz pure alcohol) Usually about every 3 months, 1 or 2 PHQ-2 Answer Date Recorded PHQ-2 Score 7 02/12/2020 Hunger Vital Sign Answer Date Recorded Within the past 12 months, y ou worried that your food would run out before you got the money to buy more. Never true 11/14/19 24 Within the past 12 months, t he food you bought just didn't last and you didn't have money to get more. Never true 11/14/2023 Sex and Gender Information Value Date Recorded Sex Assigned at Female 01/15/2022 7:47 PM EDT Gender Identity Female 01/15/2022 7:47 PM EDT Sexual Orientation Straight 01/15/2022 7: 47 PM EDT Job Start Date Occupation Industry Not on file Not on file Not on file documented as of this encounter Last Filed Vital Signs Vital Sign Reading Time Taken Comments Blood Pressure 98/58 11/16/2023 9:55 AM EDT Pulse 72 11/16/2023 9:55 AM EDT Temperature 36.6 C (97.9 F) 11/16/2023 9:55 AM ED T Respiratory Rate 16 11/16/2023 9:55 AM EDT Oxygen Saturation 100% 11/16/2023 9:55 AM EDT Inhaled Oxygen Concentration - - Weight 50.1 kg (110 lb 6.4 oz) 11/16/2023 9:55 A M EDT Height - - Body Mass Index 20.86 07/18/2023 1:52 PM EST documented in this encounter Functional Status Functional Status Response Date of Assess ment Are you deaf or do you have serious difficulty h earing? No 04/20/2022 Are you blind or do you have serious difficulty seeing, even when wearing glasses? No 04/20/2022 Do you have serious difficul ty walking or climbing stairs? (5 years old or older) No 04/20/2022 Do you have difficulty dress ing or bathing? (5 years old or older) No 04/20/2022 Because of a physical, menta l, or emotional condition, do you have difficulty doing errands alone such as visiting a doctor s office or shopping? (15 years old or older) No 04/20/20 22 Cognitive Status Response Date of Assessm ent Because of a physical, menta l, or emotional condition, do you have serious difficulty concentrating, remembering, or making decisions? (5 years old or older) No 04/20/2022 documented as of this encounter Progress Notes * Anshu Glynn MD - 11/16/2023 9:58 AM EDT Nursing Notes: She Marcial LPN 11/16/23 0955 Sign at exiting of workspace Abida Mayberry presents with complaints of ongoing sinus problems and post nasal drip. Seen by ENTabout 1 year ago. As the day goes on she is making more mucus, had to clear her throat, gets a burning and the food even tsang her throat. ENT felt this was no infection and see GI. GI was not impressed. She has had agastric bypass Past Medical History: Diagnosis Date Allergic rhinitis due to other allergen Anemia 2011 Anxiety state 09/24/2008 Asthma, allergic Depressive disorder, not elsewhere classified 1995 hosp cch , resolved Displacement of cervical intervertebral disc without myelopathy 08/02/2002 Fatty liver 2012 Hypersomnia with sleep apnea does not wear CPAP Myalgia and myositis Other specified acquired hypothyroidism 08/20/2009 Past Surgical History: Procedure Laterality Date ANESTH, LOWER ABDOMEN HERNIA REPAIR 03/17/2005 ANESTHESIA FOR FAT LAYER REMOVAL 03/17/2005 panniculoplasty brachioplasty bilat C-/T-SPINE PARAVERTEBRAL FACET INJ, 1 LEVEL 11/21/2013 C-/T-SPINE PARAVERTEBRAL FACET INJ, 1 LEVEL performed by Hi Stinson DO at OR [facility] CARPAL TUNNEL SURGERY right COLONOSCOPY 2011 COLONOSCOPY, DIAGNOSTIC (RECTUM) 08/24/2022 prep-fair / normal scope, non-bleeding hemorrhoids / no specimens collected / 5 year recall / COLONOSCOPY FLEXIBLE PROXIMAL DIAGNOSTIC performed by Jasmin Mendes MD at ENDOSCOPY [facility] COLONOSCOPY, OUTSIDE PROCEDURE 03/10/2012 done at [facility] DENTAL SURGERY PROCEDURE NEC Dental Surgery Procedure EGD, FLEXIBLE, DIAGNOSTIC 11/25/2017 normal bx/ESOPHAGOGASTRODUODENOSCOPY (EGD), FLEXIBLE, TRANSORAL, DIAGNOSTIC performed by Jasmin Mendes MD at ENDOSCOPY [facility] GASTRIC BYPASS FOR OBESITY 01/2004 GASTRIC BYPASS FOR OBESITY 2004 INFORMATION labor and delivery x2 MAMMOGRAM - BILATERAL 10/29/2002 birad code 1 MAMMOGRAM - BILATERAL 01/12/2007 birad code 2 PAP SCREEN 12/03/2010 negative for malignancy REMOVE EXCESSIVE SKIN, OTHER AREA 10/03/2006 EXCISION EXCESSIVE SKIN AND SUBCUTANEOUS TISSUE OTHER performed by GRACIA CUMMINGS at OR [facility] REMOVE EXCESSIVE SKIN/TISSUE, ARM 10/03/2006 EXCISION EXCESSIVE SKIN AND SUBCUTANEOUS TISSUE ARM performed by GRACIA CUMMINGS at OR [facility] REMOVE EXCESSIVE SKIN/TISSUE, THIGH 10/03/2006 EXCISION EXCESSIVE SKIN AND SUBCUTANEOUS TISSUE THIGH performed by GRACIA CUMMINGS at OR [facility] REMOVE TONSILS & ADENOIDS, AGE 12+ Tonsillectomy/Adenoids,12+ Y/O REPAIR INITIAL INGUINAL HERNIA REDUCIBLE AGE 5 OR MORE 2004 SUCTION REMOVE FAT TISSUE, ARMS 10/03/2006 SUCTION ASSISTED LIPECTOMY UPPER EXTREMITY performed by GRACIA CUMMINGS at OR [facility] SUCTION REMOVE FAT TISSUE, LEGS 10/03/2006 SUCTION ASSISTED LIPECTOMY LOWER EXTREMITY performed by GRACIA CUMMINGS at OR [facility] TISSUE TRANSFER, LARGE/COMPLICATED 10/03/2006 ADJACENT TISSUE TRANSFER 30 PLUS SQ CM UNUSUAL performed by GRACIA CUMMINGS at OR [facility] UTERINE LEIOMYOMA US ABLAT,<200CC 01/11/2011 Review of patient's allergies indicates: Allergen Reactions Erythromycin Rash Social History Socioeconomic History Marital status: Spouse name: Duy Number of children: 2 Years of education: Not on file Highest education level: Not on file Occupational History Employer: [employer] 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 Employer: [employer] Tobacco Use Smoking status: Never Smokeless tobacco: Never Vaping Use Vaping Use: Never used Substance and Sexual Activity Alcohol use: Yes Comment: Usually about every 3 months, 1 or 2 Drug use: No Sexual activity: Yes Partners: Male control/protection: Surgical Comment: vas Other Topics Concern Service No Blood Transfusions No Caffeine Concern No Comment: once cup of tea per day Occupational Exposure No Hobby Hazards No Sleep Concern Yes Comment: insomnia Stress Concern Yes Weight Concern Yes Comment: 15 lbs gain over the past year Special Diet No Comment: history of gastric bypass Back Care No Exercise Yes Bike Helmet Not Asked Seat Belt Yes Self-Exams Yes Social History Narrative Not on file Social Determinants of Health Financial Resource Strain: Not on file Food Insecurity: No Food Insecurity (11/14/2023) Hunger Vital Sign Worried About Running Out of Food in the Last Year: Never true Ran Out of Food in the Last Year: Never true Transportation Needs: Not on file Physical Activity: Not on file Stress: Not on file Social Connections: Not on file Intimate Partner Violence: Not on file Housing Stability: Not on file Current Outpatient Medications Medication Sig Dispense Refill MULTIVITAMINS PO TABS Take by mouth 2 times a day. 0 VITAMIN D 2000 UNIT PO TABS daily EXCEDRIN TENSION HEADACHE 500-65 MG PO TABS as needed VITAMIN B-12 2500 MCG SL SUBL 5000mcg daily ONETOUCH ULTRA BLUE STRP Use up to four times a day as directed 100 Strip 11 albuterol (VENTOLIN HFA) 108 (90 BASE) MCG/ACT inhaler Inhale 2 Puffs by mouth 4 times a day. 1 Inhaler 3 LORAzepam (ATIVAN) 0.5 MG Tablet TAKE ONE TABLET BY MOUTH 2 TIMES A DAY NEEDED ANXIETY 60 Tab 0 Ipratropium [place] 0.03 % Nasal Solution (Atrovent) Administer 2 Sprays into each nostril 2 times a day as needed for Rhinitis. 30 mL 12 Calcium Citrate-Vitamin D3 315-6.25 MG-MCG Oral Tablet Take by mouth 2 times a day. buPROPion HCl ER (SR) 150 MG Oral Tablet Extended Release 12 Hour (Wellbutrin SR) Take 1 Tablet by mouth in the morning and 1 Tablet before bedtime. 180 Tablet 2 Triamcinolone Acetonide 0.1 % External Cream (Aristocort) Apply to rash twice daily for two weeks. Avoid face and groin. Repeat as needed but give at least one week break before repeating. 454 g 1 Mounjaro 2.5 MG/0.5ML Subcutaneous Solution Pen-injector (Tirzepatide) Inject 2.5 mg under the skinonce a week. 2 mL 11 Psyllium 0.52 GM Oral Capsule at bedtime. Cyclobenzaprine HCl 10 MG Oral Tablet (Flexeril) Take 0.5-1 Tablets by mouth in the morning and 0.5-1 Tablets at noon and 0.5-1 Tablets before bedtime. 30 Tablet 5 DULoxetine HCl 30 MG Oral Capsule Delayed Release Particles (Cymbalta) TAKE ONE CAPSULE BY MOUTH EVERY DAY IN THE MORNING 90 Capsule 3 No current facility-administered medications for this visit. Immunization History Administered Date(s) Administered COVID-19 mRNA, LNP-s, No Preserve, 2-Dose Series ([employer]) 11/15/2020, 12/06/2020, 11/21/2021 Hepatitis B Vaccine, Recombinant, Adjuvanted, 20 mcg/mL (Heplisav-B) 03/14/2023 Hepatitis B, 20+ yrs 05/16/2023, 09/19/2023 Pneumococcal Conjugate Vaccine, 20-valent ([id number]) 03/14/2023 Pneumococcal Polysaccharide PPV23 (Pneumovax) 08/12/2009 Seasonal Influenza, PF, 6 M & above, IM , (FluLaval or Fluzone) 04/25/2017, 04/26/2018, 05/11/2021, 04/15/2022, 04/23/2023 Seasonal Influenza, Quadrivalent, No Preserve, IM 04/26/2018, 04/18/2019, 05/01/2020 Seasonal Influenza, Split, IIV3, With Preserve, Inj 06/24/2006, 05/11/2009, 07/28/2010, 06/08/2011,04/25/2013, 04/30/2014, 05/05/2015, 04/29/2016 TDAP (age 10 and older)(Boostrix) 03/14/2023 TDAP (age 11 and older)(Adacel) 11/13/2008, 09/26/2011 Vitamin B12 Injection 03/17/2004, 04/21/2005, 09/22/2006, 03/15/2007, 05/19/2007, 07/19/2007, 08/16/2007, 10/04/2007, 11/15/2007, 12/20/2007, 01/17/2008, 03/11/2008, 09/24/2008, 12/24/2008, 03/25/2009, 06/24/2009, 12/23/2009, 07/28/2010, 09/17/2010, 03/23/2011, 07/13/2011, 10/12/2011, 01/12/2012, 04/28/2012, 10/31/2012 Zoster Vaccine Recombinant (Shingrix) 03/14/2023, 05/16/2023 Lab Results Component Value Date/Time HEMOGLOBIN A1C - [facility] 4.9 06/15/2023 09:41 AM HEMOGLOBIN A1C - [facility] 5.5 03/09/2022 08:53 AM HEMOGLOBIN A1C - [facility] 5.5 06/20/2021 08:36 AM HEMOGLOBIN A1C - [facility] 4.9 11/16/2013 10:11 AM HEMOGLOBIN A1C - [facility] 5.1 09/23/2003 10:08 AM HEMOGLOBIN A1C - [facility] 5.2 05/10/2003 12:43 PM HEMOGLOBIN A1C POCT - [facility] 4.8 09/06/2022 01:01 PM Results for orders placed or performed in visit on 07/18/23 COMPREHENSIVE METABOLIC PANEL Result Value Ref Range BUN 20 6 - 20 mg/dL Creatinine 0.8 0.5 - 1.0 mg/dL Estimated Glomerular Filtration Rate >90 >=60 mL/min Sodium 141 135 - 146 mmol/L Potassium 4.7 3.5 - 5.1 mmol/L Chloride 104 98 - 107 mmol/L CO2 30 22 - 32 mmol/L Anion Gap 7 7 - 15 mmol/L Glucose 84 70 - 120 mg/dL Albumin 4.2 3.8 - 5.0 g/dL AST 38 (H) 10 - 35 U/L Alkaline Phosphatase 106 35 - 130 U/L Bilirubin, Total <0.2 <=1.2 mg/dL Calcium 9.3 8.4 - 10.2 mg/dL Protein 6.3 6.0 - 8.3 g/dL ALT 52 (H) 10 - 35 U/L Results for orders placed or performed in visit on 06/15/23 LIPID PANEL WITH DIRECT LDL IF TG IS HIGH Result Value Ref Range Triglycerides 48 <=174 mg/dL Cholesterol 186 <200 mg/dL HDL Cholesterol 106 >49 mg/dL Non-HDL Cholesterol 80 <=159 mg/dL LDL Cholesterol 70 <=129 mg/dL O: Blood pressure 98/58, pulse 72, temperature 36.6 C (97.9 F), temperature source Tympanic, resp. rate 16, weight 50.1 kg (110 lb 6.4 oz), SpO2 100%, not currently . General appearance: well developed, well nourished and in no acute distress. A: Acute recurrent maxillary sinusitis (Primary) - Amoxicillin-Pot Clavulanate 875-125 MG Oral Tablet (Augmentin); Take 1 Tablet by mouth in the morning and 1 Tablet before bedtime. Do all this for 10 days. Gastroesophageal reflux disease with esophagitis without hemorrhage - Pantoprazole Sodium 40 MG Oral Tablet Delayed Release (Protonix); one pill twice a day 30 minutesbefore meals. Do not crush, split or chew the tablet Specifically, this could be nasopharyngeal reflux. If she responds, that would help clear the air on what is going on. documented in this encounter Nursing Notes * She Marcial LPN - 11/16/2023 9:54 AM EDT Abida Mayberry presents with complaints of ongoing sinus problems and post nasal drip. Seen by ENTabout 1 year ago. documented in this encounter Plan of Treatment Upcoming Encounters Date Type Department Care Team (Late st Contact Info) Description 12/14/2023 8:40 AM EDT Office Visit Nutrition & Weight Management, [facility] [address] [place] [address] Belén Triana PA-C [address] [place] [address] 01/05/2024 9:20 AM EDT Office Visit Dermatology [facility] [address] [place] [address] Tena Yost MD [address] [place] [address] 01/17/2024 1:00 PM EDT Office Visit Hematology/Oncology [facility] [address] [place] [id number] Anil Franz MD [address] [place] [address] Scheduled Procedures Name Priority Associated Diagnoses Date/Ti me COLONOSCOPY FLEXIBLE PROXIMAL DIAGNOSTIC Recall Screen for colon cancer Health Maintenance Due Date Last Done Comments Diabetic Foot Exam 1981 HPV/Co-Test 1993 Cervical Cancer Screening 07/09/2018 Pap Smear 07/09/2018 07/09/2015, 11/07 (Done elsewhere), 09/28/2005, Additional history exists Depression Screening 02/11/2021 02/12/2020 Mammogram 02/12/2022 02/12/2021, 10/0 09/2018, 08/14/2015, Additional history exists Albumin/Creatinine Ratio 02/21/2022 02/21/2021 COVID-19 Vaccine ( season) 2023 11/21/2021, 12/06/2020, 11/15/2020 HbA1c 12/14/2023 06/15/2023, 08/10, 03/09/2022, Additional history exists Diabetic Eye Exam 06/13/2024 06/13/2023, 06/02/2021 GFR 07/18/2024 07/18/2023, 03/2023, 12/18/2022, Additional history exists COLONOSCOPY-EVERY 5 YRS AGES 18-100 08/24/2027 08/24/2022, 08/24/2022 Lipid Panel 06/15/2028 06/15/2023, 03/2022, 11/08/2020, Additional history exists DTaP,Tdap,and Td Vaccines (4 - Td or Tdap) 03/14/2033 03/14/2023, 09/26/2011, 11/13/2008 Colonoscopy Discontinued 08/24/2022, 08/24/2022 Colorectal Cancer Screening Discontinued Pneumococcal Vaccine: Pediatrics (0 to 5 Years) and At-Risk Patients (6 to 64 Years) Completed 03/14/2023, 08/12/2009 Influenza Vaccine (FLU shot) Completed 04/23/2023, 04/15/2022, 05/11/2021, Additional history exists Zoster Vaccines Completed 05/16/2023, 03/14/2023 Hepatitis B Completed 09/19/2023, 04/2023, 03/14/2023 Cologuard Discontinued Fecal Occult Blood Test Discontinued GARDASIL-HPV IMMUNIZATION SERIES Aged Out No longer eligible based on patient's age to complete this topic MENINGOCOCCAL (MENACTRA/MENVEO) Aged Out No longer eligible based on patient's age to complete this topic Sigmoidoscopy Discontinued documented as of this encounter Medical Devices Not on filedocumented as of this encounter Visit Diagnoses Diagnosis Acute recurrent maxillary sinusitis- Primary Acute maxillary sinusitis Gastroesophageal reflux disease with esophagitis without hemorrhage documented in this encounter Care Teams Lithopone Charger Relationship Specialty Start Date End Date Bin Neely III, MD [address] [place] [address] PCP - General 03/22/1996 documented as of this encounter
--- OUTSIDE RECORDS SUMMARY | 2023-11-25 19:57 | External Medical Summary ---
Author Name Unknown Address Unknown Organization [id number]:[facility] [place] - [address] [place] [address] Laboratory Report Ordering Provider Test Date Status MINERVA MTZ 08/12/2023 10:59:56 Final Observation Date Value Abnormality Reference (Units ) Status Lipase 08/12/2023 10:59:56 46 13-60 (U/L ) Final Performing Location [facility] - [address] [place] [address]
--- OUTSIDE RECORDS SUMMARY | 2023-11-25 19:57 | External Medical Summary | Summary of Care ---
Author Name Unknown Organization [facility] Address [address] [place] [address] Phone [phone] Care Team Providers Care Mountain Services Manager Name Role Phone Chin LAMB MD, Kiki Truong Primary Care Provider [phone] Reason for Visit * Reason Comments eRx-Medication Refill Encounter Details Date Type Department Care Team (Late st Contact Info) Description 08/13/2023 Refill Family Practice [facility] [address] [facility] [place] [address] Kiki Greenberg III, MD [address] [place] [address] Allergies Active Allergy Reactions Criticality Noted Date Comments Erythromycin Rash 06/02/2000 documented as of this encounter (statuses as of 08/15/2023) Medications Medication Sig Dispensed Refills Start Date End Date Status MULTIVITAMINS PO TABSIndications:E sophageal reflux Take by mouth 2 times a day. 0 10/29/2005 Active VITAMIN D 2000 UNIT PO TABS daily 0 Active EXCEDRIN TENSION HEADACHE 500-65 MG PO TABS as needed 0 Active VITAMIN B-12 2500 MCG SL SUBL 5000mcg daily 0 Active ONETOUCH ULTRA BLUE STRPIndications:P ostgastric surgery syndromes Use up to four times a day as directed 100 Strip 11 2014 Active albuterol (VENTOLIN HFA) 108 (90 BASE) MCG/ACT inhalerIndication s:Dyspnea Inhale 2 Puffs by mouth 4 times a day. 1 Inhaler 3 12/30/2017 Active LORAzepam (ATIVAN) 0.5 MG TabletIndications :Anxiety state TAKE ONE TABLET BY MOUTH 2 TIMES A DAY NEEDED ANXIETY 60 Tab 0 02/15/2019 Active Ipratropium [place] 0.03 % Nasal Solution (Atrovent) Administer 2 [...] Active Triamcinolone Acetonide 0.1 % External Cream (Aristocort)Indic ations:Rash and nonspecific skin eruption Apply to rash twice daily for two weeks. Avoid face and groin. Repeat as needed but give at least one week break before repeating. 454 g 1 01/10/2023 Active Mounjaro 2.5 MG/0.5ML Subcutaneous Solution Pen-injector (Tirzepatide)Eda cations:Type 2 diabetes mellitus with hemoglobin A1c goal of less than 7.0% ([facility]) Inject 2.5 mg under the skin once a week. 2 mL 11 06/15/2023 4 Active Psyllium 0.52 GM Oral Capsule at bedtime. 0 06/15/2023 Active Cyclobenzaprine HCl 10 MG Oral Tablet (Flexeril)Indicat ions:Cervical spondylosis Take 0.5-1 Tablets by mouth in the morning and 0.5-1 Tablets at noon and 0.5-1 Tablets before bedtime. 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 Abnormal results of liver function studies 05/05/2010 06/08/2018 Morbid obesity, BMI not known 06/07/2003 03/29/2017 Excessive menstruation 10/17/200006/08 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 Never true 08/27/19 23 Within the past 12 months, t he food you bought just didn't last and you didn't have money to get more. Never true 08/27/2022 Sex and Gender Information Value Date Recorded Sex Assigned at Female 01/15/2022 7:47 PM EDT Gender Identity Female 01/15/2022 7:47 PM EDT Sexual Orientation Straight 01/15/2022 7: 47 PM EDT Job Start Date Occupation Industry Not on file Not on file Not on file documented as of this encounter Functional Status Functional Status Response [...] No 04/20/2022 documented as of this encounter Miscellaneous Notes * Telephone Encounter - Sonja Enrique [facility] - 08/15/2023 12:35 PM ESTSigned Prescriptions: Disp Refills DULoxetine HCl 30 MG Oral Capsule Delayed *90 Cap*3 Sig: TAKE ONE CAPSULE BY MOUTH EVERY DAY IN THE MORNINGAuthorizing Provider: KIKI GREENBERG III User: SONJA ENRIQUE Electronically signed by Sonja Enrique [facility] at 08/15/2023 12:35 PM EST documented in this encounter Plan of Treatment Upcoming Encounters Date Type Department Care Team (Late st Contact Info) Description 09/19/2023 10:00 AM EST Immunization/Inje ction Ancillary [facility] [address] [place] [address] Nurse Rodolfo Hendrickson [facility] [address] [place] [address] 12/14/2023 8:40 AM EDT Office Visit Nutrition & Weight Management, [facility] [address] [facility] [place] [address] Belén Triana PA-C [address] [place] [address] 01/05/2024 9:20 AM EDT Office Visit Dermatology [place] [address] [place] [address] Tena Yost MD [address] [place] [address] 01/17/2024 1:00 PM EDT Office Visit [facility] [address] [facility] [place] [address] Anil Franz MD 200 [facility] [place] [address] Scheduled Procedures Name Priority Associated Diagnoses Date/Ti me COLONOSCOPY FLEXIBLE PROXIMAL DIAGNOSTIC Recall Screen for colon cancer Health Maintenance Due Date Last Done Comments Diabetic Foot Exam 1981 HPV/Co-Test 1993 Cervical Cancer Screening 07/09/2018 Pap Smear 07/09/2018 07/09/2015, 11/07 (Done elsewhere), 09/28/2005, Additional history exists Depression Screening 02/11/2021 02/12/2020 Mammogram 02/12/2022 02/12/2021, 09/2018, 08/14/2015, Additional history exists Albumin/Creatinine Ratio 02/21/2022 02/21/2021 COVID-19 Vaccine ( season) 2023 11/21/2021, 12/06/2020, 11/15/2020 Hepatitis B (3 of 3 - Risk 3-dose series) 09/14/2023 05/16/2023, 03/14/2023 HbA1c 12/14/2023 06/15/2023, 08/10, 03/09/2022, Additional history [...] history exists Zoster Vaccines Completed 05/16/2023, 03/14/2023 Cologuard Discontinued Fecal Occult Blood Test Discontinued GARDASIL-HPV IMMUNIZATION SERIES Aged Out No longer eligible based on patient's age to complete this topic MENINGOCOCCAL (MENACTRA/MENVEO) Aged Out No longer eligible based on patient's age to complete this topic Sigmoidoscopy Discontinued documented as of this encounter Medical Devices Not on filedocumented as of this encounter Care Teams Mountain Services Manager Relationship Specialty Start Date End Date Kiki Greenberg III, MD [address] [place] [address] PCP - General 03/22/1996 documented as of this encounter
--- OUTSIDE RECORDS SUMMARY | 2023-11-25 19:57 | External Medical Summary | Summary of Care ---
Author Name Unknown Organization [facility] Address [address] [place] [address] Phone [phone] Care Team Providers Care Manager Of Tires Sales Name Role Phone Chin LAMB MD, Bin Truong Primary Care Provider [phone] Reason for Visit * Reason Comments Outpatient Testing Encounter Details Date Type Department Care Team (Late st Contact Info) Description 08/12/2023 11:00 AM EST Laboratory Laboratory, [place] [address] [place] [id number] [place] [address] [place], [place] [id number] Elevated lipase Allergies Active Allergy Reactions Criticality Noted Date Comments Erythromycin Rash 06/02/2000 documented as of this encounter (statuses as of 08/12/2023) Medications Medication Sig Dispensed Refills Start Date [...] ANXIETY 60 Tab 0 02/15/2019 Active Ipratropium [place] 0.03 % Nasal Solution (Atrovent) Administer 2 [...] before bedtime. 180 Tablet 2 12/11/2022 Active DULoxetine HCl 30 MG Oral Capsule Delayed Release Particles (Cymbalta) TAKE ONE CAPSULE BY MOUTH EVERY DAY IN THE MORNING Strength: 30 mg 90 Capsule 1 01/05/2023 Active Triamcinolone Acetonide 0.1 % External Cream (Aristocort)Indicat ions:Rash and nonspecific skin eruption Apply to rash twice daily for two weeks. Avoid face and groin. Repeat as needed but give at least one week break before repeating. 454 g 1 01/10/2023 Active Mounjaro 2.5 MG/0.5ML Subcutaneous Solution Pen-injector (Tirzepatide)Indica tions:Type 2 diabetes mellitus with hemoglobin A1c goal of less than 7.0% ([facility]) Inject 2.5 mg under the skin once a week. 2 mL 11 06/15/2023 06/14/2024 Active Psyllium 0.52 GM Oral Capsule at bedtime. 0 06/15/2023 Active Cyclobenzaprine HCl 10 MG Oral Tablet (Flexeril)Indicatio ns:Cervical spondylosis Take 0.5-1 Tablets by mouth in the morning and 0.5-1 Tablets at noon and 0.5-1 Tablets before bedtime. 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 documented as of this encounter (statuses as of 08/12/2023) Immunizations Name Administration Dates Next Due COVID-19 mRNA, LNP-s, No Pre serve, 2-Dose Series ([facility]) 11/21/2021,12/06/2020,11/15/2020 Hepatitis B Vaccine, Recombi nant, Adjuvanted, 20 mcg/mL (Heplisav-B) 03/14/2023 Hepatitis B, 20+ yrs 05/16/2023 Pneumococcal Conjugate Vacci ne, 20-valent ([id number]) 03/14/2023 Pneumococcal Polysaccharide PPV23 (Pneumovax) 08/12/2009 Seasonal [...] (15 years old or older) No 04/20/20 Cognitive Status Response Date of Assessm ent Because of a physical, menta l, or emotional condition, do you have serious difficulty concentrating, remembering, or making decisions? (5 years old or older) No 04/20/2022 documented as of this encounter Plan of Treatment Upcoming Encounters Date Type Department Care Team (Late st Contact Info) Description 09/19/2023 10:00 AM EST Immunization/Inje ction Ancillary [facility] [address] [facility] [place] [address] Nurse Rodolfo Hendrickson [facility] [address] [facility] [place] [address] 12/14/2023 8:40 AM EDT Office Visit Nutrition & Weight Management, [facility] [place] [address] Belén Triana PA-C [facility] [place] [address] 01/05/2024 9:20 AM EDT Office Visit Dermatology [facility] [place] [address] Tena Yost MD [address] [place] [address] 01/17/2024 1:00 PM EDT Office Visit Hematology/Oncology [facility] [address] [place] [address] Anil Franz MD [address] [place] [address] Pending Results Name Type Priority Associated Diagnoses Date /Time LIPASE Lab Routine Elevated lipase 08/12/2023 10:59 AM EST Scheduled Procedures Name Priority Associated Diagnoses Date/Ti [...] as of this encounter Visit Diagnoses Diagnosis Elevated lipase Other nonspecific abnormal serum enzyme levels documented in this encounter Care Teams Manager Of Tires Sales Relationship Specialty Start Date End Date Bin Neely III, MD [address] [place] [address] PCP - General 03/22/1996 documented as of this encounter
--- OUTSIDE RECORDS SUMMARY | 2023-11-25 19:57 | External Medical Summary | Summary of Care ---
Author Name Unknown Organization [facility] Address [address] [place] [address] Phone [phone] Care Team Providers Care Pediatric Neurologist Name Role Phone Chin LAMB MD, Bin rTuong Primary Care Provider [phone] Reason for Visit * Reason Onset Date Comments Health Maintenance 07/25/2023 Encounter Details Date Type Department Care Team (Late st Contact Info) Description 07/25/2023 Telephone Family Practice [facility] [address] [facility] [place] [address] Bin Neely III, MD 200 [place] [address] Health Maintenance Allergies Active Allergy Reactions Criticality Noted Date Comments Erythromycin Rash 06/02/2000 documented as of this encounter (statuses as of 07/25/2023) Medications Medication Sig Dispensed Refills Start Date [...] ANXIETY 60 Tab 0 02/15/2019 Active Ipratropium [place] 0.03 % Nasal Solution (Atrovent) Administer 2 [...] hemoglobin A1c goal of less than 7.0% ([facility]) Inject 2.5 mg under the skin once [...] as of this encounter (statuses as of 07/25/2023) Active Problems Problem Noted Date Diagnosed Date [...] as of this encounter (statuses as of 07/25/2023) Resolved Problems Problem Noted Date Diagnosed Date Resolved Date 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 Abnormal results of liver function studies 05/05/2010 06/08/2018 Morbid obesity, BMI not known 06/07/2003 03/29/2017 Excessive menstruation 10/17/200006/08 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 documented as of this encounter (statuses as of 07/25/2023) Immunizations Name Administration Dates Next Due COVID-19 mRNA, LNP-s, No Pre serve, 2-Dose Series ([employer]) 11/21/2021,12/06/2020,11/15/2020 Hepatitis B Vaccine, Recombi nant, Adjuvanted, 20 mcg/mL (Heplisav-B) 03/14/2023 Hepatitis B, 20+ yrs 05/16/2023 Pneumococcal Conjugate Vacci ne, 20-valent ([id number]) 03/14/2023 Pneumococcal Polysaccharide PPV23 (Pneumovax) 08/12/2009 Seasonal [...] encounter Miscellaneous Notes * Telephone Encounter - Patricia Santa LPN - 07/25/2023 9:56 AM EST Care Gaps Comprehensive Care Outreach Last Office/Telemedicine Visit: 07/22/2023 (in office), 09/28/2021 (telemedicine) Next Office Visit: Visit date not found Hemoglobin AIC Results: Lab Results Component Value Date/Time HEMOGLOBIN A1C - [facility] 4.9 06/15/2023 09:41 AM HEMOGLOBIN A1C - [facility] 5.5 03/09/2022 08:53 AM HEMOGLOBIN A1C - [facility] 5.5 06/20/2021 08:36 AM HEMOGLOBIN A1C - [facility] 4.9 11/16/2013 10:11 AM HEMOGLOBIN A1C - [facility] 5.1 09/23/2003 10:08 AM HEMOGLOBIN A1C - [facility] 5.2 05/10/2003 12:43 PM HEMOGLOBIN A1C POCT - [facility] 4.8 09/06/2022 01:01 PM Reviewed Health Maintenance below: Health Maintenance Topic Date Due Diabetic Foot Exam Never done Cervical Cancer Screening 07/09/2018 Depression Screening 02/11/2021 Mammogram 02/12/2022 Albumin/Creatinine Ratio 02/21/2022 COVID-19 Vaccine ( season) 2023 Hepatitis B (3 of 3 - Risk 3-dose series) 09/14/2023 Pap Mamm urine Care Gap Outreach Action Taken: Unable to reach and Myportal message sent documented in this encounter Plan of Treatment Upcoming Encounters Date Type Department Care Team (Late st Contact Info) Description 09/19/2023 10:00 AM EST Immunization/Inje ction Ancillary [facility] [address] [place] [address] Nurse Rodolfo Hendrickson [facility] [address] [facility] [place] [address] 12/14/2023 8:40 AM EDT Office Visit Nutrition & Weight Management, [facility] [address] [place] [address] Belén Triana PA-C [address] [place] [place] [address] 01/05/2024 9:20 AM EDT Office Visit Dermatology [facility] [address] [place] [address] Tena Yost MD [address] [place] [address] 01/17/2024 1:00 PM EDT Office Visit Hematology/Oncology [facility] [address] [place] [address] Anil Franz MD [address] [place] [address] Scheduled Procedures Name Priority Associated Diagnoses Date/Ti [...] 08/24/2027 08/24/2022, 08/24/2022 Lipid Panel 06/15/2028 06/15/2023, 1103/2022, 11/08/2020, Additional history exists DTaP,Tdap,and Td Vaccines [...] filedocumented as of this encounter Care Teams Pediatric Neurologist Relationship Specialty Start Date End Date Bin Neely III, MD 200 [facility] [place] [address] PCP - General 03/22/1996 documented as of this encounter
--- OUTSIDE RECORDS SUMMARY | 2023-11-25 19:57 | External Medical Summary | Summary of Care ---
Author Name Unknown Organization [facility] Address [address] [place] [address] Phone [phone] Care Team Providers Care Produce Production Team Member Name Role Phone Chin LAMB MD, Bin Truong Primary Care Provider [phone] Reason for Visit * Reason Comments Immunizations Encounter Details Date Type Department Care Team (Late st Contact Info) Description 09/19/2023 10:00 AM EST Immunization/I njection Ancillary [facility] [address] [place] [address] Madhavi Nurse [place] 200 [facility] [place] [address] Need for vaccination* Allergies Active Allergy Reactions Criticality Noted Date Comments Erythromycin Rash 06/02/2000 documented as of this encounter (statuses as of 09/19/2023) Medications Medication Sig Dispensed Refills Start Date [...] ANXIETY 60 Tab 0 02/15/2019 Active Ipratropium [place] 0.03 % Nasal Solution (Atrovent) Administer 2 [...] hemoglobin A1c goal of less than 7.0% ([facility]) Inject 2.5 mg under the skin once [...] THE MORNING 90 Capsule 3 08/15/2023 Active documented as of this encounter (statuses as of 09/19/2023) Active Problems Problem Noted Date Diagnosed Date [...] as of this encounter (statuses as of 09/19/2023) Resolved Problems Problem Noted Date Diagnosed Date Resolved Date 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 Abnormal results of liver function studies 05/05/2010 06/08/2018 Morbid obesity, BMI not known 06/07/2003 03/29/2017 Excessive menstruation 10/17/200006/08 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 documented as of this encounter (statuses as of 09/19/2023) Immunizations Name Administration Dates Next Due COVID-19 mRNA, LNP-s, No Pre serve, 2-Dose Series ([employer]) 11/21/2021,12/06/2020,11/15/2020 Hepatitis B Vaccine, Recombi nant, Adjuvanted, 20 mcg/mL (Heplisav-B) 03/14/2023 Hepatitis B, 20+ yrs 09/19/2023,05/16/2023 Pneumococcal Conjugate Vacci ne, 20-valent ([email or web address]) 03/14/2023 Pneumococcal Polysaccharide PPV23 (Pneumovax) 08/12/2009 Seasonal [...] as of this encounter Progress Notes * Beverly Burrows LPN - 09/19/2023 10:10 AM EST The patient has been properly identified by confirmation of name and date of . Hepatitis B VIS given to patient. Hepatitis B ordered and Provider aware. Beverly Burrows LPN Time Out Procedure Performed: Yes Patient Identified (Ask Name/Date of ): Yes Immunization(s) verified: Yes, VIS Sheet(s) given: Yes Verified Side and Site: Yes Verified Shot(s) with Patient: Yes Beverly Burrows LPN documented in this encounter Plan of Treatment Upcoming Encounters Date Type Department Care Team (Late st Contact Info) Description 12/14/2023 8:40 AM EDT Office Visit Nutrition & Weight Management, [facility] [address] [facility] [place] [address] Belén Triana PA-C [address] [place] [address] 01/05/2024 9:20 AM EDT Office Visit Dermatology [facility] [address] [place] [address] Tena Yost MD [address] [place] [address] 01/17/2024 1:00 PM EDT Office Visit Hematology/Oncology [place] 200 [facility] [place], [place] [address] Anil Franz MD 200 [facility] [place] [address] Scheduled Procedures Name Priority Associated Diagnoses Date/Ti [...] 08/24/2027 08/24/2022, 08/24/2022 Lipid Panel 06/15/2028 06/15/2023, 110 03/2022, 11/08/2020, Additional history exists DTaP,Tdap,and Td [...] as of this encounter Visit Diagnoses Diagnosis Need for vaccination- Primary Need for prophylactic vaccination and inoculation against unspecified single disease documented in this encounter Care Teams Produce Production Team Member Relationship Specialty Start Date End Date Bin Neely III, MD 200 [facility] [place] [address] PCP - General 03/22/1996 documented as of this encounter
--- OUTSIDE RECORDS SUMMARY | 2023-11-25 19:58 | External Medical Summary | Summary of Care ---
Author Name Unknown Organization [facility] Address [address] [place] [address] Phone [phone] Care Team Providers Care Board Certified Family Physician Name Role Phone Chin LAMB MD, Bin Truong Primary Care Provider [phone] Reason for Visit * Reason Comments Outpatient Testing Encounter Details Date Type Department Care Team (Late st Contact Info) Description 07/11/2023 10:20 AM EST Laboratory Laboratory, [facility] [address] [place] [id number] [facility] [address] [place] [address] Iron deficiency anemia, unspecified iron deficiency anemia type; Cutaneous T-cell lymphoma, unspecified body region (HCC) Allergies Active Allergy Reactions Criticality Noted Date Comments Erythromycin Rash 06/02/2000 documented as of this encounter (statuses as of 07/11/2023) Medications Medication Sig Dispensed Refills Start Date [...] ANXIETY 60 Tab 0 02/15/2019 Active Ipratropium [place] 0.03 % Nasal Solution (Atrovent) Administer 2 [...] hemoglobin A1c goal of less than 7.0% (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 documented as of this encounter (statuses as of 07/11/2023) Immunizations Name Administration Dates Next Due COVID-19 mRNA, LNP-s, No Pre serve, 2-Dose Series ([employer]) 11/21/2021,12/06/2020,11/15/2020 Hepatitis B Vaccine, Recombi nant, Adjuvanted, 20 mcg/mL (Heplisav-B) 03/14/2023 Hepatitis B, 20+ yrs 05/16/2023 Pneumococcal Conjugate Vacci ne, 20-valent (Anmitpf17) 03/14/2023 Pneumococcal Polysaccharide PPV23 (Pneumovax) 08/12/2009 SEASONAL INFLUENZA, PF, 6 M & Above, IM , (FLULAVAL or FLUZONE) 04/23/2023,04/15/2022,05/11/2021,04/26,04/25/2017 Seasonal Influenza, Quadriva lent, No Preserve, [...] Care Team (Late st Contact Info) Description 07/18/2023 2:00 PM EST Office Visit Hematology/Oncology [facility] [address] [facility] [place] [address] Anil Franz MD 200 [facility] [place] [address] 09/19/2023 10:00 AM EST Immunization/Inje ction Ancillary [facility] [address] [facility] [place] [address] Madhavi Nurse Fam Prac [facility] 200 [facility] [place] [address] 12/14/2023 8:40 AM EDT Office Visit Nutrition & Weight Management, [facility] [address] [place] [address] Belén Triana PA-C [address] [place] [address] 01/05/2024 9:20 AM EDT [place] [address] [place] [address] Tena Yost MD [address] [place] [address] Pending Results Name Type Priority Associated Diagnoses Date /Time LD Lab Routine Iron deficiency anemia, unspecified iron deficiency anemia type Cutaneous T-cell lymphoma, unspecified body region (HCC) 07/11/2023 10:23 AM EST [id number], SERUM Lab Routine Iron deficiency anemia, unspecified iron deficiency anemia type Cutaneous T-cell lymphoma, unspecified body region (HCC) 07/11/2023 10:23 AM EST Scheduled Procedures Name Priority Associated [...] exists Albumin/Creatinine Ratio 02/21/2022 02/21/2021 COVID-19 Vaccine (2022-24 season) 2023 11/21/2021, 12/06/2020, 11/15/2020 Hepatitis B (3 of 3 - Risk 3-dose series) 09/14/2023 05/16/2023, 03/14/2023 HbA1c 12/14/2023 06/15/2023, 08/10, 03/09/2022, Additional history exists Diabetic Eye Exam 06/13/2024 06/13/2023, 06/02/2021 GFR 06/15/2024 06/15/2023, 12/06, 04/15/2022, Additional history exists COLONOSCOPY-EVERY 5 YRS AGES [...] as of this encounter Visit Diagnoses Diagnosis Iron deficiency anemia, unspecified iron deficiency anemia type Cutaneous T-cell lymphoma, unspecified body region (HCC) documented in this encounter Care Teams Board Certified Family Physician Relationship Specialty Start Date End Date Bin Neely III, MD 200 [facility] [place] [address] PCP - General 03/22/1996 documented as of this encounter
--- OUTSIDE RECORDS SUMMARY | 2023-11-25 19:58 | External Medical Summary | Summary of Care ---
Author Name Unknown Organization [facility] Address [address] [place] [address] Phone [phone] Care Team Providers Care Press Operator Assistant Name Role Phone Chin LAMB MD, Bin Truong Primary Care Provider [phone] Reason for Visit * Reason Onset Date Comments Test Results Lab 07/19/2023 Encounter Details Date Type Department Care Team (Late st Contact Info) Description 07/19/2023 Telephone Hematology/Oncology Treatment, [place] [address] [place] [address] Bin Neely III, MD [address] [place] [address] Test Results Lab Allergies Active Allergy Reactions Criticality Noted Date Comments Erythromycin Rash 06/02/2000 documented as of this encounter (statuses as of 07/20/2023) Medications Medication Sig Dispensed Refills Start Date [...] ANXIETY 60 Tab 0 02/15/2019 Active Ipratropium [place] 0.03 % Nasal Solution (Atrovent) Administer 2 [...] hemoglobin A1c goal of less than 7.0% ([facility]) Inject 2.5 mg under the skin [...] as of this encounter (statuses as of 07/20/2023) Active Problems Problem Noted Date Diagnosed Date [...] as of this encounter (statuses as of 07/20/2023) Resolved Problems Problem Noted Date Diagnosed Date Resolved Date 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 Abnormal results of liver function studies 05/05/2010 06/08/2018 Morbid obesity, BMI not known 06/07/2003 03/29/2017 Excessive menstruation 10/17/200006/08 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 documented as of this encounter (statuses as of 07/20/2023) Immunizations Name Administration Dates Next Due COVID-19 mRNA, LNP-s, No Pre serve, 2-Dose Series ([employer]) 11/21/2021,12/06/2020,11/15/2020 Hepatitis B Vaccine, Recombi nant, Adjuvanted, 20 mcg/mL (Heplisav-B) 03/14/2023 Hepatitis B, 20+ yrs 05/16/2023 Pneumococcal Conjugate Vacci ne, 20-valent ([id number]) 03/14/2023 Pneumococcal Polysaccharide PPV23 (Pneumovax) 08/12/2009 Seasonal [...] encounter Miscellaneous Notes * Telephone Encounter - Bakari Davalos DO - 07/20/2023 4:27 PM EST Excellent * Telephone Encounter - Ivone Torres LPN - 07/20/2023 3:55 PM EST Called pt. Informed of message. She does have full feeling all the time, she also gets off and on discomfort on left side under breast. No nausea or vomiting no temp. She also has an occasional feeling of burning with urination. She has contributed these to being onthe mounjaro Pt will increase water intake. I scheduled her an appt with nash Vicente on 07/22 for 8:20 * Telephone Encounter - Bakari Davalos DO - 07/19/2023 7:34 PM EST Please call patient: if she is having N/V or abdominal pain she should be seen in the office. If not she does not have to schedule. * Telephone Encounter - Beverly Powers RN - 07/19/2023 3:[address] Franz: "Lipase levels 114. It was also high during her recent admission to the hospital. Clinically she isdoing well and had no symptoms of abdominal pain, nausea or change in the bowel habits. Please inform the PCP for further management " Dr Neely: GIGI documented in this encounter Plan of Treatment Upcoming Encounters Date Type Department Care Team (Late st Contact Info) Description 07/22/2023 8:20 AM EST Office Visit Family Practice [facility] [place] [address] [place] [address] Nash Vicente PA-C 200 [facility] [place] [address] 09/19/2023 10:00 AM EST Immunization/Inje ction Ancillary [facility] [place] [facility] [place] [address] Madhavi Nurse Fam Prac [facility] 200 [facility] [place] [address] 12/14/2023 8:40 AM EDT Office Visit Nutrition & Weight Management, [facility] 132 [facility] [place] [address] Belén Triana PA-C [facility] [place] [address] 01/05/2024 9:20 AM EDT [place] [address] [place] [address] [place] [address] Tena Yost MD [address] [place] [address] 01/17/2024 1:00 PM EDT Office Visit Hematology/Oncology [facility] [address] [place] [address] Anil Franz MD 200 [facility] [place] [address] Scheduled Procedures Name Priority Associated Diagnoses Date/Ti me COLONOSCOPY FLEXIBLE PROXIMAL DIAGNOSTIC Recall Screen for colon cancer Health Maintenance Due Date Last Done Comments Diabetic Foot Exam 1981 HPV/Co-Test 1993 Cervical Cancer Screening 07/09/2018 Pap Smear 07/09/2018 07/09/2015, 11/07 (Done elsewhere), 09/28/2005, Additional history exists Depression Screening 02/11/2021 02/12/2020 Mammogram 02/12/2022 02/12/2021, 1009/2018, 08/14/2015, Additional history exists Albumin/Creatinine Ratio 02/21/2022 02/21/2021 COVID-19 Vaccine (24 season) 2023 11/21/2021, 12/06/2020, 11/15/2020 Hepatitis B [...] filedocumented as of this encounter Care Teams Press Operator Assistant Relationship Specialty Start Date End Date Bin Neely III, MD [address] [place] [address] PCP - General 03/22/1996 documented as of this encounter
--- OUTSIDE RECORDS SUMMARY | 2023-11-25 19:58 | External Medical Summary ---
Author Name Unknown Address Unknown Organization : Laboratory Report Ordering Provider Test Date Status BASSCONTRERASSHARRI 07/11/2023 10:23:29 Final Observation Date Value Abnormality Reference (Units ) Status Beta-2 Microglobulin 07/11/2023 10:23:29 2.27 <=2.51 (mg/L) Final This test was performed usin g the Gomes
Immunoturbidimetric method. Values obtained
from different assay methods cannot be used
interchangeably. Beta-2 Microglobulin levels,
regardless of value, should not be interpreted
as absolute evidence of the presence or absence of
disease.

Test Performed at:
[facility]
[address] [facility]
[place] [address]
Kalia Bean M.D., Ph.D.,Director of Laboratories Performing Location
--- OUTSIDE RECORDS SUMMARY | 2023-11-25 19:58 | External Medical Summary ---
Author Name Unknown Address Unknown Organization K09:[facility] [place] [address] Laboratory Report Ordering Provider Test Date Status MAKAYLA CHEW 07/22/2023 09:08:08 Final Observation Date Value Abnormality Reference (Units ) Status Albumin 07/22/2023 09:08:08 4.4 3.8-5.0 (g/dL) Final AST (Aspartate aminotransferase) 07/22/2023 09:08:08 30 10-35 (U/L) Final Alk Phos 07/22/2023 09:08:08 108 35-130 (U/L) Final ALT (Alanine aminotransferase) 07/22/2023 09:08:08 42 Above high normal 10-35 (U/L) Final Bilirubin, Total 07/22/2023 09:08:08 0.2 <=1.2 (mg/dL) Final Bilirubin, Direct 07/22/2023 09:08:08 <0.2 0.0-0.3 (mg/dL) Final Protein 07/22/2023 09:08:08 6.5 6.0-8.3 (g/dL) Final Performing Location [facility] [place] [address]
--- OUTSIDE RECORDS SUMMARY | 2023-11-25 19:58 | External Medical Summary | Summary of Care ---
Author Name Unknown Organization [facility] Address [address] [place] [address] Phone [phone] Care Team Providers Care Final Block Press Operator Name Role Phone Chin LAMB MD, Bin Truong Primary Care Provider [phone] Reason for Visit * Reason Onset Date Comments Test Results Lab 07/19/2023 Encounter Details Date Type Department Care Team (Late st Contact Info) Description 07/19/2023 Telephone Hematology/Oncology Treatment, [place] 200 [place] [address] Bin Neely III, MD 200 [place] [address] Test Results Lab Allergies Active Allergy Reactions Criticality Noted Date Comments Erythromycin Rash 06/02/2000 documented as of this encounter (statuses as of 07/19/2023) Medications Medication Sig Dispensed Refills Start Date [...] ANXIETY 60 Tab 0 02/15/2019 Active Ipratropium [place] 0.03 % Nasal Solution (Atrovent) Administer 2 [...] hemoglobin A1c goal of less than 7.0% ([facility]) Inject 2.5 mg under the [...] as of this encounter (statuses as of 07/19/2023) Active Problems Problem Noted Date Diagnosed Date [...] as of this encounter (statuses as of 07/19/2023) Resolved Problems Problem Noted Date Diagnosed Date Resolved Date 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 Abnormal results of liver function studies 05/05/2010 06/08/2018 Morbid obesity, BMI not known 06/07/2003 03/29/2017 Excessive menstruation 10/17/200006/08 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 It was also high during her recent admission to the hospital. Clinically she isdoing well and had no symptoms of abdominal pain, nausea or change in the bowel habits. Please inform the PCP for further management " Dr Neely: FYI documented in this encounter Plan of Treatment Upcoming Encounters Date Type Department Care Team (Late st Contact Info) Description 09/19/2023 10:00 AM EST Immunization/Inje ction Ancillary [facility] [address] [place] [address] [facility] 200 [facility] [place] [address] 12/14/2023 8:40 AM EDT Office Visit Nutrition & Weight Management, [facility] [address] [address] Belén Triana PA-C [address] [place] [address] 01/05/2024 9:20 AM EDT Office Visit Dermatology [facility] [address] [place] [address] Tena Yost MD [address] [place] [address] 01/17/2024 1:00 PM EDT Office Visit Hematology/Oncology [facility] [place] 200 [facility] [place] [address] Anil Franz MD 200 [facility] [place] [address] Scheduled Procedures Name Priority Associated Diagnoses Date/Ti [...] Albumin/Creatinine Ratio 02/21/2022 02/21/2021 COVID-19 Vaccine ( - 2022-24 season) 2023 11/21/2021, 12/06/2020, 11/15/2020 Hepatitis B (3 of 3 - Risk 3-dose series) 09/14/2023 05/16/2023, 03/14/2023 HbA1c 12/14/2023 06/15/2023, 08/10, 03/09/2022, Additional history exists Diabetic Eye Exam 06/13/2024 06/13/2023, 06/02/2021 GFR 07/18/2024 07/18/2023, 03/2023, 12/18/2022, Additional history exists COLONOSCOPY-EVERY 5 YRS AGES 18-100 08/24/2027 08/24/2022, 08/24/2022 Lipid Panel 06/15/2028 06/15/2023, 0 03/2022, 11/08/2020, Additional history exists DTaP,Tdap,and Td [...] filedocumented as of this encounter Care Teams Final Block Press Operator Relationship Specialty Start Date End Date Bin Neely III, MD [address] [place] [address] PCP - General 03/22/1996 documented as of this encounter
--- OUTSIDE RECORDS SUMMARY | 2023-11-25 19:58 | External Medical Summary | Summary of Care ---
Author Name Unknown Organization [facility] Address [address] [place] [address] Phone [phone] Care Team Providers Care Railroad Police Name Role Phone Chin LAMB MD, Bin Truong Primary Care Provider [phone] Reason for Visit * Reason Comments Follow Up 6m Encounter Details Date Type Department Care Team (Late st Contact Info) Description 07/18/2023 2:00 PM EST Office Visit Hematology/Oncology [facility] [place] [address] [place] [address] Anil Franz MD [address] [place] [address] Iron deficiency anemia, unspecified iron deficiency anemia type*; Primary cutaneous marginal zone B-cell lymphoma (HCC) Allergies Active Allergy Reactions Criticality Noted Date Comments Erythromycin Rash 06/02/2000 documented as of this encounter (statuses as of 07/18/2023) Medications Medication Sig Dispensed Refills Start Date [...] ANXIETY 60 Tab 0 02/15/2019 Active Ipratropium Cromwell 0.03 % Nasal Solution (Atrovent) Administer 2 [...] hemoglobin A1c goal of less than 7.0% ([facility]) Inject 2.5 mg under the skin once [...] as of this encounter (statuses as of 07/18/2023) Active Problems Problem Noted Date Diagnosed Date [...] as of this encounter (statuses as of 07/18/2023) Resolved Problems Problem Noted Date Diagnosed Date Resolved Date 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 Abnormal results of liver function studies 05/05/2010 06/08/2018 Morbid obesity, BMI not known 06/07/2003 03/29/2017 Excessive menstruation 10/17/200006/08 [employer] 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-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 08/2017 documented as of this encounter (statuses as of 07/18/2023) Immunizations Name Administration Dates Next Due COVID-19 mRNA, LNP-s, No Pre serve, 2-Dose Series ([employer]) 11/21/2021,12/06/2020,11/15/2020 Hepatitis B Vaccine, Recombi nant, Adjuvanted, 20 mcg/mL (Heplisav-B) 03/14/2023 Hepatitis B, 20+ yrs 05/16/2023 Pneumococcal Conjugate Vacci ne, 20-valent ([id number]) 03/14/2023 Pneumococcal Polysaccharide PPV23 (Pneumovax) 08/12/2009 SEASONAL [...] Date Smoking Tobacco: Never Smokeless Tobacco: Never Tobacco Cessation:Counseling Given: Not Answered Alcohol Use Standard Drinks/Week Comments Yes 0 [...] Sign Reading Time Taken Comments Blood Pressure 93/63 07/18/2023 1:52 PM EST Pulse 75 07/18/2023 1:52 PM EST Temperature - - Respiratory Rate 16 07/18/2023 1:52 PM EST Oxygen Saturation 99% 07/18/2023 1:52 PM EST Inhaled Oxygen Concentration - - Weight 48.1 kg (106 lb) 07/18/2023 1:52 PM EST Height 154.9 cm (5' 1") 07/18/2023 1:52 PM EST Body Mass Index 20.03 07/18/2023 1:52 PM EST documented in this [...] as of this encounter Progress Notes * Anil Franz MD - 07/18/2023 2:00 PM EST Outpatient Consult Note Data Source: Patient, [facility] record. Data Source: Patient, [facility] record. 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 Venofer infusion. Received last dose on 01/02/2021. Oncologic History : 58-year-old female referred to me for further management of the primary cutaneous marginal zone B-cell lymphoma. She initially noticed a lesion on the left shoulder area about 3 months ago. This lesion was slowly growing and pruritic. Patient also notice a lesion in the right axilla that has grown over the last few weeks and reports looks similar. She also has a lesion on the right volar forearm.She reports that these lesions are pruritic like the lesion on her left shoulder. She does report fatigue and night sweats but has blamed this on hormone changes due to menopause. She denies any fevers. Denies any history of weight loss. Biopsy of the left superior shoulder lesion was done on 06/30/2020 and it is consistent with cutaneous marginal zone lymphoma. She also had a biopsy of right to axillary lesion and right volar forearm: on 07/18/2020 and and histopathology is consistent with cutaneous marginal zone lymphoma. Patient had PET scan done on 07/28/2020 to evaluate the systemic disease and it was negative and there was no FDG PET evidence of systemic disease. A. Skin, left superior shoulder: Atypical lymphocytic infiltrate (see comment) Comment: A panel of immunohistochemical stains to help differentiate cutaneous lymphoma from pseudolymphoma will be performed, and the results will be reported in an addendum. B. Skin, right postauricular scalp: Benign melanocytic nevus, extending to the deep margin Addendum Diagnosis Consistent with cutaneous marginal zone lymphoma (see comment) Addendum Comment This case is being addended to report the results of immunohistochemical stains performed to assessfor cutaneous lymphoma. CD3, CD5, CD4, CD8 highlight a predominance of T-cells with a normal CD4:CD8. CD20 jimenes a smaller component of B-cells, partially arranged in follicles. Small remnants of reactive germinal centers are highlighted with bcl6. Bcl2 stains T and a subset of the B-cell population.CD21 is negative. MIB does not highlight a high proliferative index. Parlier and lambda in situ hybridization highlight a monotypic kappa population in the clusters of plasma cells noted on H and E stains. PD1 highlights scattered mostly solitary cells. Cyclin D1 does not show significant staining. While there is overlap with cutaneous lymphoid hyperplasia (pseudolymphoma), the plasma cell clusters and monotypic kappa population are consistent with marginal zone lymphoma. If this process is skin limited, this low grade lymphoma is typically associated with an indolent course similar to that of cutaneous lymphoid hyperplasia, including recurrences. Evaluation and continued monitoring for cutaneous lymphadenopathy and B-symptoms or other signs of extracutaneous disease is recommended A. Skin, right anterior axilla: Atypical lymphocytic infiltrate, consistent with cutaneous marginalzone lymphoma (seecomment) Comment: Hematoxylin and eosin stained sections reveal a dense diffuse to nodular lymphoid infiltrate within the dermis similar to that seen in prior biopsy [id number]. B. Skin, right volar forearm: Localized lymphocytic infiltrate with subtle lichenoid features (see comment) Comment: The lymphocytic cells are absent in deep sections. The microscopic differential diagnosis includes a lichenoid keratosis, however early changes of a lesion similar to that in specimen A cannot be completely Excluded. Patient was treated with radiation therapy to the disease site. Patient past medical history is also significant for gastric bypass surgery was done in 2003. She was also treated in the past with iron infusion. Last time she received was in 2018. She also underwent surgery for Abdominal panniculitis, Excess hip soft tissue - bilateral and Excess skin of upper arm - bilateral on 03/17/2005 She denies smoking. She drinks rarely. Family history significant for father was diagnosed of bone cancer. Mother was diagnosed of kidney cancer and multiple myeloma. Grandfather from the father's side was diagnosed of pancreatic cancer. One sister was diagnosed of lupus, ovarian and liver cancer Interval History: She had episode of fall while cleaning the bathroom and was seen in the ED. now overall clinically she is feeling better. She continues to have pain which is improving on the left side of the chest. Denies any fever, night sweats, headache, dizziness, blurred vision, chest pain, palpitation abdominal pain or distention, bleeding, bruising, nausea, vomiting, change in the bowel habits. LABS/IMAGING: Results for orders placed or performed in visit on 07/11/23 LD Result Value Ref Range LD 143 <=250 U/L [id number], SERUM Result Value Ref Range B2 Microglobulin, Serum 2.27 <=2.51 mg/L *Note: Due to a large number of results and/or encounters for the requested time period, some results have not been displayed. A complete set of results can be found in Results Review. Last CBC was done on 06/15/2023 which shows WBC count 4.13, hemoglobin 13.7 and platelet count 279.Electrolytes were in acceptable range but the AST and ALT were elevated. Anemia workup including folic acid, vitamin B12, ferritin and iron screen all were within acceptable range. REVIEW OF SYSTEMS: General: No Fever, chills, night sweats, or weight loss. HEENT: No change in visual acuity, blurred or double vision. No epistaxis, facial pain, nasal discharge or change in hearing. Denies dysphagia, no muscosal ulceration, or sores noted. Cardiovascular: No chest pain, DAVIS, or palpitations Respiratory: No shortness of breath, cough, hemoptysis, or pleuritic chest pain Gastrointestinal: No abdominal pain, nausea, vomiting, diarrhea, rectal pain or bleeding Genitourinary: Denies Hematuria or dysuria Musculoskeletal: Pain on the left side of the chest Skin: No new skin rash or lesions noted Neurologic: No numbness, weakness, neuropathic pain or change in cognitive function Psychiatric: No vegetative signs of depression Endocrine: No symptoms of hypothyroidism or hyperglycemia Hematologic: No bleeding or lymph nodes noted As mentioned above, all of the systems were reviewed in full and are unremarkable. Past Medical History: Diagnosis Date Allergic rhinitis due to other allergen Anemia 2011 Anxiety state 09/24/2008 Asthma, allergic Depressive disorder, not elsewhere classified 1996 [facility] , resolved Displacement of cervical intervertebral disc without myelopathy 08/02/2002 Fatty liver 2012 Hypersomnia with sleep apnea does not wear CPAP Myalgia and myositis Other specified acquired hypothyroidism 08/20/2009 Current Outpatient Medications Medication Sig Dispense Refill [...] DAY NEEDED ANXIETY 60 Tab 0 Ipratropium Cromwell 0.03 % Nasal Solution (Atrovent) Administer 2 [...] 1 Tablet before bedtime. 180 Tablet 2 DULoxetine HCl 30 MG Oral Capsule Delayed Release Particles (Cymbalta) TAKE ONE CAPSULE BY MOUTH EVERY DAY IN THE MORNING Strength: 30 mg 90 Capsule 1 Triamcinolone Acetonide 0.1 % External Cream (Aristocort) [...] 0.5-1 Tablets before bedtime. 30 Tablet 5 No current facility-administered medications for this visit. Social History Tobacco Use Smoking status: Never Smokeless tobacco: Never Vaping Use Vaping Use: Never used Substance Use Topics Alcohol use: Yes Comment: Usually about every 3 months, 1 or 2 Drug use: No Review of patient's allergies indicates: Allergen Reactions Erythromycin Rash PHYSICAL EXAMINATION: General Appearance: Healthy appearing patient in no acute distress BP 93/63 (BP Site: Left Arm, BP Position: Sitting, BP Cuff Size: Regular) | Pulse 75 | Resp 16 | Ht1.549 m (5' 1") | Wt 48.1 kg (106 lb) | SpO2 99% | BMI 20.03 kg/m | BSA 1.44 m Vitals reviewed. HEENT: No oral or pharyngeal masses, ulceration or thrush noted, no sinus tenderness. Neck is supple with no thyromegaly or JVD noted. Lymph Nodes: No lymphadenopathy noted in the occipital, pre and post auricular, cervical, supra andinfraclavicular, axillary, epitrochlear, inguinal, and popliteal region. Lungs/Thorax: Clear to auscultation, no accessory muscles of respiration being used. Heart: Regular rate and rhythm, normal S1, S2 Abdomen: Soft, nontender, bowel sounds present, no appreciable hepatosplenomegaly, no palpable masses Extremeties: Good pulses bilaterally, no peripheral edema. Skin: Normal skin tone with no rash, petechiae, ecchymosis noted. Musculoskeletal: No pain on palpation over bony prominence, no edema, no evidence of gout, no jointor bony deformity ASSESSMENT: 58-year-old female presented with skin nodule and biopsy was done which is consistent with cutaneous marginal zone B-cell lymphoma. She had further workup done including PET scan and were negative. Blood tests including LDH was within normal limit. She had only skin involvement with lymphoma and workup for systemic involvement is negative including PET scan and LDH was normal. Patient was treatedwith the radiation therapy and received total of 15 fraction to left axilla, right axilla and rightforearm completed on 09/03/2020. Primary cutaneous marginal zone B-cell lymphoma (PCMZL) is a low-grade malignant B-cell lymphoma that presents in the skin, with no evidence of extracutaneous localizations at the time of diagnosis and has indolent clinical behavior and excellent prognosis. PCMZLs have a tendency to recur in the skin, but dissemination to extracutaneous sites was considered exceedingly rare. Her history is also significant for iron deficiency anemia because of the gastric bypass surgery and was treated with Venofer. Received last dose of Venofer on 01/02/2021. Overall clinically she is stable without any new symptoms. Physical examination is unremarkable. There is increase in the LFTs and I will repeat her CMP today. Discussed with the patient about diagnosis and reviewed all the available blood test result with her. PLAN: She will have blood test done today including CMP and lipase. She will return to clinic for follow-up in 6 months with CBC, CMP and LDH. The patient voiced understanding of all of the above. All questions and concerns were addressed in an apparently satisfactory manner. Anil Franz MD (This note was completed using the dictation program Fluency Direct. As such, there may be misspellings, word substitutions, or other variations that should not change the essence of the clinical content of this encounter note. If there is need for further clarification, please direct questions to me.) documented in this encounter Nursing Notes * Lucia Lerma, COAL WHEELER - 07/18/2023 1:53 PM EST Patient identifed by name and birthdate Do you have any concerns about pain management for today's visit? No Living Will or Advance Directive for Health Care as noted on the problem list. [facility] is a way you can talk to your provider on line through e-mail. Would you like to sign up? I can activate it for you? ALREADY ACTIVE Filed Vitals: 07/18/23 1352 BP: 93/63 Pulse: 75 Resp: 16 SpO2: 99% Weight: 48.1 kg (106 lb) Height: 1.549 m (5' 1") Patient was instructed to not get up on the exam table/exam chair until directed and assisted by their provider; patient is to remain seated in the chair/ wheelchair/ exam table/ exam chair for fall prevention and safety reasons. Patient is aware to have assistance to step down off exam table/exam chair with personnel. Patient voiced full comprehension of instructions. documented in this encounter Plan of Treatment Upcoming Encounters Date Type Department Care Team (Late st Contact Info) Description 09/19/2023 10:00 AM EST Immunization/Inje ction Ancillary [address] [place] [address] Madhavi Nurse Fam [address] [facility] [place] [address] 12/14/2023 8:40 AM EDT Office Visit Nutrition & Weight Management, [facility] [address] [facility] [place] [address] Belén Triana PA-C [address] [place] [address] 01/05/2024 9:20 AM EDT Office Visit Dermatology [place] [address] [place] [address] Tena Yost MD [address] [place] [address] 01/17/2024 1:00 PM EDT Office Visit Hematology/Oncology [address] [place] [address] Anil Franz MD [address] [place] [address] Pending Results Name Type Priority Associated Diagnoses Date /Time COMPREHENSIVE METABOLIC PANEL Lab Routine Iron deficiency anemia, unspecified iron deficiency anemia type Primary cutaneous marginal zone B-cell lymphoma (HCC) 07/18/2023 2:20 PM EST LIPASE Lab Routine Iron deficiency anemia, unspecified iron deficiency anemia type Primary cutaneous marginal zone B-cell lymphoma (HCC) 07/18/2023 2:20 PM EST Scheduled Orders Name Type Priority Associated Diagnoses Orde r Schedule CBC WITH WBC DIFFERENTIAL Lab Routine Iron deficiency anemia, unspecified iron deficiency anemia type Primary cutaneous marginal zone B-cell lymphoma (HCC) Expected: 01/16/2024, Expires: 07/24/2024 COMPREHENSIVE METABOLIC PANEL Lab Routine Iron deficiency anemia, unspecified iron deficiency anemia type Primary cutaneous marginal zone B-cell lymphoma (HCC) Expected: 01/16/2024, Expires: 07/24/2024 LD Lab Routine Iron deficiency anemia, unspecified iron deficiency anemia type Primary cutaneous marginal zone B-cell lymphoma (HCC) Expected: 01/16/2024, Expires: 07/24/2024 LIPASE Lab Routine Iron deficiency anemia, unspecified iron deficiency anemia type Primary cutaneous marginal zone B-cell lymphoma (HCC) Expected: 07/18/2023, Expires: 07/18/2024 Scheduled Procedures Name Priority Associated Diagnoses Date/Ti [...] Iron deficiency anemia, unspecified iron deficiency anemia type- Primary Primary cutaneous marginal zone B-cell lymphoma (HCC) Marginal zone lymphoma, unspecified site, extranodal and solid organ sites documented in this encounter Care Teams Railroad Police Relationship Specialty Start Date End Date Bin Neely III, MD [address] [place] [address] PCP - General 03/22/1996 documented as of this encounter
--- OUTSIDE RECORDS SUMMARY | 2023-11-25 19:58 | External Medical Summary ---
Author Name Unknown Address Unknown Organization [id number]:LABORATORY [facility] - [address] [facility] [address] Laboratory Report Ordering Provider Test Date Status MAKAYLA CHEW 07/22/2023 09:08:08 Final Observation Date Value Abnormality Reference (Units ) Status WBC, Total 07/22/2023 09:08:08 4.50 4.00-10.8 0 (K/uL) Final RBC 07/22/2023 09:08:08 4.14 3.85-5.15 (M/uL) Final Hemoglobin 07/22/2023 09:08:08 13.8 12.0-15.3 (g/dL) Final Anemia reflex testing trigge rs on a HGB < 12.0 for Females and HGB < 13.0 for Males in accordance with the WHO Anemia Guidelines
Anemia reflex testing triggers on a HGB < 12.0 for Females and HGB < 13.0 for Males in accordance with the WHO Anemia Guidelines HCT 07/22/2023 09:08:08 43.0 36.0-45.2 (%) Final MCV 07/22/2023 09:08:08 103.9 81.5-97.5 (fL) Final MCH 07/22/2023 09:08:08 33.3 27.0-34.0 (pg) Final MCHC 07/22/2023 09:08:08 32.1 32.0-36.0 (g/dL) Final RDW 07/22/2023 09:08:08 12.1 11.5-15.5 (%) Final Platelets 07/22/2023 09:08:08 261 140-400 (K /uL) Final MPV 07/22/2023 09:08:08 11.1 6.6-11.1 ( fL) Final Nucleated erythrocytes/100 leukocytes [Ratio] in Blood by Automated count 07/22/2023 09:08:08 0 <=0 (/100 WBCs) Fi [facility] Performing Location LABORATORY [facility] - [address] [facility] [address]
--- OUTSIDE RECORDS SUMMARY | 2023-11-25 19:58 | External Medical Summary ---
Author Name Unknown Address Unknown Organization [id number]:LABORATORY [facility] - [address] [place] [address] Laboratory Report Ordering Provider Test Date Status MAKAYLA CHEW 07/22/2023 09:08:08 Final Observation Date Value Abnormality Reference (Units ) Status Lipase 07/22/2023 09:08:08 70 Above high normal 13 -60 (U/L) Final Performing Location LABORATORY [facility] - [address] [place] [address]
--- OUTSIDE RECORDS SUMMARY | 2023-11-25 19:58 | External Medical Summary | Summary of Care ---
Author Name Unknown Organization [facility] Address [address] [place] [address] Phone [phone] Care Team Providers Care Computed Tomography Technologist Name Role Phone Chin LAMB MD, Bin Truong Primary Care Provider [phone] Reason for Visit * Reason Onset Date Comments Test Results Lab 07/19/2023 Encounter Details Date Type Department Care Team (Late st Contact Info) Description 07/19/2023 Telephone Hematology/Oncology Treatment, [place] [address] [place] [address] Bin Neely III, MD [address] [place] [address] Test Results Lab Allergies Active Allergy Reactions [...] ANXIETY 60 Tab 0 02/15/2019 Active Ipratropium Beulah 0.03 % Nasal Solution (Atrovent) Administer 2 [...] hemoglobin A1c goal of less than 7.0% ([facility]) Inject 2.5 mg under the skin once [...] 06/07/2003 03/29/2017 Excessive menstruation 10/17/200006/08 [employer] 08/2017 documented as of this encounter (statuses as of 07/19/2023) Immunizations Name Administration Dates Next Due COVID-19 mRNA, LNP-s, No Pre serve, 2-Dose Series ([employer]) 11/21/2021,12/06/2020,11/15/2020 Hepatitis B Vaccine, Recombi nant, Adjuvanted, 20 mcg/mL (Heplisav-B) 03/14/2023 Hepatitis B, 20+ yrs 05/16/2023 Pneumococcal Conjugate Vacci ne, 20-valent ([id number]) 03/14/2023 Pneumococcal Polysaccharide PPV23 (Pneumovax) 08/12/2009 Seasonal [...] RN - 07/19/2023 3:07 PM EST Per Maria M: "Lipase levels 114. It was also high [...] 09/19/2023 10:00 AM EST Immunization/Inje ction Ancillary [facility] [address] [place] [address] Nurse Rodolfo Hendrickson [facility] [address] [facility] [place] [address] 12/14/2023 8:40 AM EDT Office Visit Nutrition & Weight Management, [facility] [address] [facility] [place] [address] Belén Triana PA-C [address] [place] [address] 01/05/2024 9:20 AM EDT Office Visit Dermatology [place] [address] [facility] [address] Tena Yost MD [address] [place] [address] 01/17/2024 1:00 PM EDT Office Visit Hematology/Oncology [place]i [place] [address] [facility] [place] [address] Anil Franz MD [address] [facility] [place] [address] Scheduled Procedures Name Priority Associated Diagnoses Date/Ti [...] filedocumented as of this encounter Care Teams Computed Tomography Technologist Relationship Specialty Start Date End Date Bin Neely III, MD [address] [place] [address] PCP - General 03/22/1996 documented as of this encounter
--- OUTSIDE RECORDS SUMMARY | 2023-11-25 19:58 | External Medical Summary | Summary of Care ---
Author Name Unknown Organization [facility] Address [address] [place] [address] Phone [phone] Care Team Providers Care Sales And Marketing Coordinator Name Role Phone Chin LAMB MD, Bin Truong Primary Care Provider [phone] Reason for Visit * Reason Comments Outpatient Testing Encounter Details Date Type Department Care Team (Late st Contact Info) Description 07/22/2023 9:20 AM EST Laboratory Laboratory [facility]ery [place] [address] [place] [id number] [place], Lab Scenery [address] [place] [address] LUQ pain; Transaminitis; Elevated lipase Allergies Active Allergy Reactions Criticality Noted Date Comments Erythromycin Rash 06/02/2000 documented as of this encounter (statuses as of 07/22/2023) Medications Medication Sig Dispensed Refills Start Date [...] ANXIETY 60 Tab 0 02/15/2019 Active Ipratropium [place] 0.03 % Nasal Solution (Atrovent) Administer 2 [...] hemoglobin A1c goal of less than 7.0% (FORMERLY [facility]) Inject 2.5 mg under the skin once [...] as of this encounter (statuses as of 07/22/2023) Active Problems Problem Noted Date Diagnosed Date [...] as of this encounter (statuses as of 07/22/2023) Resolved Problems Problem Noted Date Diagnosed Date Resolved Date 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 Abnormal results of liver function studies 05/05/2010 06/08/2018 Morbid obesity, BMI not known 06/07/2003 03/29/2017 Excessive menstruation 10/17/200006/08 MV COLLISION NOS-MOUNTER HAND 08/2017 documented as of this encounter (statuses as of 07/22/2023) Immunizations Name Administration Dates Next Due COVID-19 mRNA, LNP-s, No Pre serve, 2-Dose Series (BeauCoo) 11/21/2021,12/06/2020,11/15/2020 Hepatitis B Vaccine, Recombi nant, Adjuvanted, 20 mcg/mL (Heplisav-B) 03/14/2023 Hepatitis B, 20+ yrs 05/16/2023 Pneumococcal Conjugate Vacci ne, 20-valent ([id number]) 03/14/2023 Pneumococcal Polysaccharide PPV23 (Pneumovax) 08/12/2009 Seasonal [...] Team (Late st Contact Info) Description 07/22/2023 12:00 PM EST Imaging Radiology [facility] [address] [facility] [place] [address] 09/19/2023 10:00 AM EST Immunization/Injec tion Ancillary [facility] [address] [place] [address] Madhavi Nurse Fam [facility] [address] [place] [address] [address] 12/14/2023 8:40 AM EDT Office Visit Nutrition & Weight Management, [facility] [address] [facility] [place] [address] Belén Triana PA-C 132 [facility] [place] [address] 01/05/2024 9:20 AM EDT Office Visit Dermatology [place] [address] [place] [address] Tena Yost MD [address] [place] [address] 01/17/2024 1:00 PM EDT Office Visit Hematology/Oncology [facility] [address] [place] [address] [address] Anil Franz MD [address] [place] [address] [address] Pending Results Name Type Priority Associated Diagnoses Date /Time CBC WITH WBC DIFFERENTIAL AND ANEMIA REFLEX WORKUP Lab Routine LUQ pain Transaminitis Elevated lipase 07/22/2023 9:08 AM EST LIPASE Lab Routine LUQ pain Transaminitis Elevated lipase 07/22/2023 9:08 AM EST AMYLASE Lab Routine LUQ pain Transaminitis Elevated lipase 07/22/2023 9:08 AM EST HEPATIC FUNCTION PANEL Lab Routine LUQ pain Transaminitis Elevated lipase 07/22/2023 9:08 AM EST ANEMIA CBC Lab Routine LUQ pain Transaminitis Elevated lipase 07/22/2023 9:08 AM EST DIFFERENTIAL, AUTOMATED Lab Routine LUQ pain Transaminitis Elevated lipase 07/22/2023 9:08 AM EST ANEMIA REFLEX CHEMISTRY HOLD Lab Routine LUQ pain Transaminitis Elevated lipase 07/22/2023 9:08 AM EST Scheduled Procedures Name Priority Associated [...] as of this encounter Visit Diagnoses Diagnosis LUQ pain Abdominal pain, left upper quadrant Transaminitis Nonspecific elevation of levels of transaminase or lactic acid dehydrogenase (LDH) Elevated lipase Other nonspecific abnormal serum enzyme levels documented in this encounter Care Teams Sales And Marketing Coordinator Relationship Specialty Start Date End Date Bin Neely III, MD [address] [place] [address] PCP - General 03/22/1996 documented as of this encounter
--- OUTSIDE RECORDS SUMMARY | 2023-11-25 19:58 | External Medical Summary ---
Author Name Unknown Address Unknown Organization [id number]:[facility] [place] [address] Laboratory Report Ordering Provider Test Date Status SHARRI BASS 07/18/2023 14:20:02 Final Observation Date Value Abnormality Reference (Units ) Status BUN 07/18/2023 14:20:02 20 6-20 (mg/dL) Final Creatinine 07/18/2023 14:20:02 0.8 0.5-1.0 (mg/dL) Final Glomerular filtration rate/1.73 sq M.predicted [Volume Rate/Area] in Serum, Plasma or Blood by Creatinine-based formula (CKD-EPI) 07/18/2023 14:20:02 >90 >=60 (mL/min) Final eGFR is calculated based on the CKD-EPI 2020 equation SODIUM 07/18/2023 14:20:02 141 135-146 (m mol/L) Final Potassium 07/18/2023 14:20:02 4.7 3.5-5.1 (m mol/L) Final Cl 07/18/2023 14:20:02 104 98-107 (mm ol/L) Final CO2 07/18/2023 14:20:02 30 22-32 (mmo l/L) Final Anion gap 07/18/2023 14:20:02 7 7-15 (mmol /L) Final Glucose 07/18/2023 14:20:02 84 70-120 (mg /dL) Final Albumin 07/18/2023 14:20:02 4.2 3.8-5.0 (g /dL) Final AST (Aspartate aminotransferase) 07/18/2023 14:20:02 38 Above high normal 10-35 (U/L) Final Alk Phos 07/18/2023 14:20:02 106 35-130 (U/ L) Final Bilirubin, Total 07/18/2023 14:20:02 <0.2 <=1 .2 (mg/dL) Final Calcium 07/18/2023 14:20:02 9.3 8.4-10.2 ( mg/dL) Final Protein 07/18/2023 14:20:02 6.3 6.0-8.3 (g /dL) Final ALT (Alanine aminotransferase) 07/18/2023 14:20:02 52 Above high normal 10-35 (U/L) Final Performing Location [facility] [address] [place] [address]
--- OUTSIDE RECORDS SUMMARY | 2023-11-25 19:58 | External Medical Summary ---
Author Name Unknown Address Unknown Organization [id number]:[facility] [place] [address] [facility] [address] Laboratory Report Ordering Provider Test Date Status MAKAYLA CHEW 07/22/2023 09:08:08 Final Observation Date Value Abnormality Reference (Units ) Status SYNC LEUKOCYTES IN BLOOD BY AUTOMATED COUNT 07/22/2023 09:08:08 4.50 4.00-10.80 (K/uL) Final Segs 07/22/2023 09:08:08 55.4 40.0-75.0 (%) Final Lymphs % 07/22/2023 09:08:08 26.9 18.0-42.0 (%) Final Monos 07/22/2023 09:08:08 8.4 1.0-11.0 (%) Final Eosinophils 07/22/2023 09:08:08 8.2 Above high normal 0.0-6.0 (%) Final Basos 07/22/2023 09:08:08 0.9 0.0-2.0 (%) Final Immature Granulocyte, Percent 07/22/2023 09:08:08 0.2 0.0-2.0 (%) Final Absolute Segs 07/22/2023 09:08:08 2.49 1.80-7.70 (K/uL) Final Lymphs, absolute 07/22/2023 09:08:08 1.21 1.00-4.80 (K/ul) Final Monos, Abs 07/22/2023 09:08:08 0.38 0.00-1.10 (K/uL) Final Eos, Abs 07/22/2023 09:08:08 0.37 0.00-0.70 (K/uL) Final Basos, Abs 07/22/2023 09:08:08 0.04 0.00-0.20 (K/uL) Final Immature Granulocytes, Number 07/22/2023 09:08:08 0.01 0.00-0.20 (K/uL) Final Performing Location [facility] [place] - [facility] [address] [facility] [address]
--- OUTSIDE RECORDS SUMMARY | 2023-11-25 19:58 | External Medical Summary ---
Author Name Unknown Address Unknown Organization [id number]:[facility] [place] [address] [facility] [address] Laboratory Report Ordering Provider Test Date Status SHARRI BASS 07/18/2023 14:20:02 Final Observation Date Value Abnormality Reference (Units ) Status Lipase 07/18/2023 14:20:02 114 Above high normal 13 -60 (U/L) Final Performing Location [facility] - [address] [facility] [address]
--- OUTSIDE RECORDS SUMMARY | 2023-11-25 19:58 | External Medical Summary ---
Author Name Unknown Address Unknown Organization K01:[facility] [address] [place] [address] Laboratory Report Ordering Provider Test Date Status SHARRI BASS 07/11/2023 10:23:29 Final Observation Date Value Abnormality Reference (Units ) Status LDH 07/11/2023 10:23:29 143 <=250 (U/L ) Final Performing Location [facility] - [address] [place] [address]
--- OUTSIDE RECORDS SUMMARY | 2023-11-25 19:58 | External Medical Summary | Summary of Care ---
Author Name Unknown Organization [facility] Address [address] [place] [address] Phone [phone] Care Team Providers Care Personal Security Specialist Name Role Phone Chin LAMB MD, Bin Truong Primary Care Provider [phone] Reason for Visit * Reason Onset Date Comments Test Results Lab 07/19/2023 Encounter Details Date Type Department Care Team (Late st Contact Info) Description 07/19/2023 Telephone Hematology/Oncology Treatment, [place] [address] [place] [address] Bin Neely III, MD [address] [place] [address] Test Results Lab Allergies Active Allergy Reactions [...] ANXIETY 60 Tab 0 02/15/2019 Active Ipratropium [place] 0.03 % Nasal Solution (Atrovent) Administer 2 [...] than 7.0% (FORMER[facility]) Inject 2.5 mg under the skin once [...] 06/07/2003 03/29/2017 Excessive menstruation 10/17/200006/08 MV COLLISION 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 Informed of message. She does have full feeling all the time, she also gets off and on discomfort on left side under breast. No nausea or vomiting no temp. She also has an occasional feeling of burning with urination. She has contributed these to being onthe dianneunjiaro Pt will increase water intake. I scheduled [...] 8:20 AM EST Office Visit Family Practice [facility] [place] [address] [place] [address] Nash Vicente PA-C 200 [facility] [place] [address] 09/19/2023 10:00 AM EST Immunization/Inje ction Ancillary [facility] [place] [address] [place] [address] Madhavi Nurse Fam [facility] [address] [facility] [place] [address] 12/14/2023 8:40 AM EDT Office Visit Nutrition & Weight Management, [facility] [place] [address] Belén Triana PA-C [address] [place] [address] 01/05/2024 9:20 AM EDT Office Visit Dermatology [facility] [address] [place] [address] Tena Yost MD [address] [place] [address] 01/17/2024 1:00 PM EDT Office Visit Hematology/Oncology [facility] [place] [address] [facility] [place] [address] Anil Franz MD [address] [facility] [place] [address] Scheduled Procedures Name Priority Associated Diagnoses Date/Ti me COLONOSCOPY FLEXIBLE PROXIMAL DIAGNOSTIC Recall Screen for colon cancer Health Maintenance Due Date Last Done Comments Diabetic Foot Exam 1981 HPV/Co-Test 1993 Cervical Cancer Screening 07/09/2018 Pap Smear 07/09/2018 07/09/2015, 11/07 (Done elsewhere), 09/28/2005, Additional history exists Depression Screening 02/11/2021 02/12/2020 Mammogram 02/12/2022 02/12/2021, 09/2018, 08/14/2015, Additional history exists Albumin/Creatinine Ratio 02/21/2022 02/21/2021 COVID-19 Vaccine (4 - 2022-24 season) 2023 11/21/2021, 12/06/2020, 11/15/2020 [...] filedocumented as of this encounter Care Teams Personal Security Specialist Relationship Specialty Start Date End Date Bin Neely III, MD [address] [place] [address] PCP - General 03/22/1996 documented as of this encounter
--- OUTSIDE RECORDS SUMMARY | 2023-11-25 19:58 | External Medical Summary | Summary of Care ---
Author Name Unknown Organization [facility] Address [address] [place] [address] Phone [phone] Care Team Providers Care Sql Report Developer Name Role Phone Chin LAMB MD, Bin Truong Primary Care Provider [phone] Reason for Referral * Precert (Within 24 hrs (call dept; emergent)) - Authorized Specialty Diagnoses / Procedures Referred By Skinny quiros Referred To Contact Radiology Diagnoses LUQ pain Transaminitis Elevated lipase Procedures CT ABD/PELVIS W IV CONTRAST - WO ORAL CONTRAST Ayla Vicente PA-C [address] [place] [address] Referral ID Status Reason Start Date Expiration Date V isits Requested Visits Authorized [id number] Authorized Precert 07/22/2023 08/23/2023 999 999 Reason for Visit * Reason Comments Acute Encounter Details Date Type Department Care Team (Late st Contact Info) Description 07/22/2023 8:20 AM EST Office Visit [facility] [address] [place] [address] Ayla Vicente PA-C [address] [place] [address] LUQ pain*; Transaminitis; Elevated lipase Allergies Active Allergy Reactions [...] ANXIETY 60 Tab 0 02/15/2019 Active Ipratropium [place] 0.03 % Nasal Solution (Atrovent) Administer 2 [...] A1c goal of less than 7.0% ([facility]) Inject 2.5 mg under the skin [...] 06/07/2003 03/29/2017 Excessive menstruation 10/17/200006/08 MV COLLISION NOS-TRANSITION LEAD 1108/2017 documented as of this encounter (statuses as of 07/22/2023) Immunizations Name Administration Dates Next Due COVID-19 mRNA, LNP-s, No Pre serve, 2-Dose Series (Pfizer) 11/21/2021,12/06/2020,11/15/2020 Hepatitis B Vaccine, Recombi nant, Adjuvanted, 20 mcg/mL (Heplisav-B) 03/14/2023 Hepatitis B, 20+ yrs 05/16/2023 Pneumococcal Conjugate Vacci ne, 20-valent ([id number]) 03/14/2023 Pneumococcal Polysaccharide PPV23 (Pneumovax) 08/12/2009 Seasonal [...] Sign Reading Time Taken Comments Blood Pressure 100/58 07/22/2023 8:14 AM EST Pulse 78 07/22/2023 8:14 AM EST Temperature 36.4 C (97.6 F) 07/22/2023 8:14 AM ES T Respiratory Rate 16 07/22/2023 8:14 AM EST Oxygen Saturation 100% 07/22/2023 8:14 AM EST Inhaled Oxygen Concentration - - Weight 47.6 kg (105 lb 0.6 oz) 07/22/2023 8:14 A M EST Height - - Body Mass Index 19.85 07/18/2023 1:52 PM EST documented in this [...] as of this encounter Progress Notes * Ayla Vicente PA-C - 07/22/2023 1:42 PM EST Subjective Abida Mayberry is a 58 year old female that presents for Acute 58 y/o female presents c/o LUQ pain. Pt states she was in [facility] ED after falling against her bathtuba few weeks ago. She had labs done and showed an elevated lipase and elevated liver enzymes. She continues to have left sided pain, especially around her ribs. She had scans in the Er and nothing wasbroken. She wants to make sure everything is OK especially with her pain and abnormal labs. She is on Mounjaro for hyperglycemia post gastric bypass. She states her dose had to be decreased because she lost 50 lbs in 2 months; wonders if the mounjaro could be causing any issues. She otherwise denies fevers, chills, chest pain, SOB. Some mild nausea and bloating, no diarrhea or abnormally-colored stools. Allergies and medications reviewed. Objective BP 100/58 | Pulse 78 | Temp 36.4 C (97.6 F) (Tympanic) | Resp 16 | Wt 47.6 kg (105 lb 0.6 oz) |SpO2 100% | BMI 19.85 kg/m | BSA 1.43 m Body mass index is 19.85 kg/m. BP Readings from Last 3 Encounters: 07/22/23 100/58 07/18/23 93/63 06/20/23 98/60 Wt Readings from Last 3 Encounters: 07/22/23 47.6 kg (105 lb 0.6 oz) 07/18/23 48.1 kg (106 lb) 06/20/23 47.4 kg (104 lb 9.6 oz) Physical Exam Vitals and nursing note reviewed. Constitutional: General: She is not in acute distress. Appearance: Normal appearance. HENT: Head: Normocephalic and atraumatic. Right Ear: Tympanic membrane, ear canal and external ear normal. Left Ear: Tympanic membrane, ear canal and external ear normal. Nose: Nose normal. Mouth/Throat: Mouth: Mucous membranes are moist. Pharynx: No oropharyngeal exudate or posterior oropharyngeal erythema. Eyes: General: No scleral icterus. Extraocular Movements: Extraocular movements intact. Conjunctiva/sclera: Conjunctivae normal. Pupils: Pupils are equal, round, and reactive to light. Cardiovascular: Rate and Rhythm: Normal rate and regular rhythm. Heart sounds: No murmur heard. No friction rub. No gallop. Pulmonary: Effort: Pulmonary effort is normal. Breath sounds: Normal breath sounds. No stridor. No wheezing, rhonchi or rales. Chest: Chest wall: Tenderness (mild lower left sided lateral chest wall tenderness) present. Abdominal: General: Abdomen is flat. Bowel sounds are normal. Palpations: Abdomen is soft. Tenderness: There is abdominal tenderness (epigastric, LUQ). There is no right CVA tenderness, leftCVA tenderness, guarding or rebound. Musculoskeletal: Cervical back: Neck supple. Skin: General: Skin is warm and dry. Findings: No rash. Neurological: General: No focal deficit present. Mental Status: She is alert and oriented to person, place, and time. Psychiatric: Mood and Affect: Mood normal. Behavior: Behavior normal. Assessment and plan 1. LUQ pain - CT ABD/PELVIS W IV CONTRAST - WO ORAL CONTRAST - CBC WITH WBC DIFFERENTIAL AND ANEMIA REFLEX WORKUP; Future - LIPASE; Future - AMYLASE; Future - HEPATIC FUNCTION PANEL; Future 2. Transaminitis - CT ABD/PELVIS W IV CONTRAST - WO ORAL CONTRAST - CBC WITH WBC DIFFERENTIAL AND ANEMIA REFLEX WORKUP; Future - LIPASE; Future - AMYLASE; Future - HEPATIC FUNCTION PANEL; Future 3. Elevated lipase - CT ABD/PELVIS W IV CONTRAST - WO ORAL CONTRAST - CBC WITH WBC DIFFERENTIAL AND ANEMIA REFLEX WORKUP; Future - LIPASE; Future - AMYLASE; Future - HEPATIC FUNCTION PANEL; Future -concern for acute vs chronic pancreatitis given the elevated lipase, LUQ pain and being on mounjaro -will get repeat labs to trend and updated CT of the abdomen -if normal, likely rib contusions as the cause vs gastritis (or possibly both?) -will plan to call with labs and CT results once they are back -to ER with acute worsening symptoms Follow up Check-out note: 12:00 CT scan at [facility] now Total time today including reviewing chart before the visit, pertinent labs, imaging reports, face to face time, and documentation time was 25 minutes. The above was discussed and understanding was expressed. Ayla Vicente PA-C documented in this encounter Nursing Notes * Beverly Burrows LPN - 07/22/2023 8:12 AM EST Patient presents in office today to go over lab results. As some of her results were high and wanting to figure out why. Lipase levels 114 during recent hospital stay documented in this encounter Plan of Treatment Upcoming Encounters Date Type Department Care Team (Late st Contact Info) Description 09/19/2023 10:00 AM EST Immunization/Inje ction Ancillary [facility] [address] [facility] [place] [address] Nurse Madhavi Fam Nayely [facility] [address] [facility] [place] [address] 12/14/2023 8:40 AM EDT Office Visit Nutrition & [facility] Management, [facility] [address] [place] [address] Belén Triana PA-C [address] [facility] [place] [address] 01/05/2024 9:20 AM EDT [facility] [place] [address] [place] [address] Tena Yost MD [address] [place] [address] 01/17/2024 1:00 PM EDT Office Visit Hematology/Oncology [facility] [address] [facility] [address] [place] [address] Anil Franz MD [address] [facility] [place] [address] Pending Results Name Type Priority Associated Diagnoses Date /Time CBC WITH WBC DIFFERENTIAL AND ANEMIA REFLEX WORKUP Lab Routine LUQ pain Transaminitis Elevated lipase 07/22/2023 9:08 AM EST LIPASE Lab Routine LUQ pain Transaminitis Elevated lipase 07/22/2023 9:08 AM EST AMYLASE Lab Routine LUQ pain Transaminitis Elevated lipase 07/22/2023 9:08 AM EST Scheduled Orders Name Type Priority Associated Diagnoses Orde r Schedule CBC WITH WBC DIFFERENTIAL AND ANEMIA REFLEX WORKUP Lab Routine LUQ pain Transaminitis Elevated lipase Expected: 07/22/2023 (Approximate), Expires: 07/22/2024 LIPASE Lab Routine LUQ pain Transaminitis Elevated lipase Expected: 07/22/2023 (Approximate), Expires: 07/21/2024 AMYLASE Lab Routine LUQ pain Transaminitis Elevated lipase Expected: 07/22/2023 (Approximate), Expires: 07/21/2024 Scheduled Procedures Name Priority Associated Diagnoses Date/Ti [...] Not on filedocumented as of this encounter Procedures Procedure Name Priority Date/Time Associated Diagnosis Comments CT ABD/PELVIS W IV CONTRAST - WO ORAL CONTRAST STAT 07/22/2023 12:09 PM EST LUQ pain Transaminitis Elevated lipase documented in this encounter Results * CT ABD/PELVIS W IV CONTRAST - WO ORAL CONTRAST (07/22/2023 12:09 PM EST) Anatomical Region Laterality Modality Body, Abdomen, Pelvis Computed T omography 07/22/2023 12:4 4 PM EST Impressions 07/22/2023 12:42 PM EST IMPRESSION No acute CT findings. Narrative 07/22/2023 12:42 PM EST EXAM EXAM: CT ABD/PELVIS W IV CONTRAST - WO ORAL CONTRAST DATE and TIME: 07/22/2023 - 07/22/2023 12:09 pm HISTORY "LUQ pain elebaed lipase, transaminitis" TECHNIQUE Oral Contrast: Oral contrast was not administered. IV Contrast: IV contrast was used. Abdomen/Pelvis: with intravenous contrast COMPARISON 11/18/2008 FINDINGS LOWER CHEST: HEART (visualized): Normal in size. LUNG BASES: Clear. ABDOMEN/PELVIS: LINES AND DEVICES: None. LIVER: Unremarkable. BILE DUCTS: Unremarkable. GALLBLADDER: Unremarkable. PANCREAS: Unremarkable. SPLEEN: Unremarkable. ADRENALS: Unremarkable. KIDNEYS/URETERS: Unremarkable. BLADDER: Unremarkable. BOWEL: Gastric bypass. No bowel obstruction. Large amount of fecal material in the colon, compatible with constipation. LYMPH NODES: No intra-abdominal or intrapelvic lymphadenopathy. VESSELS: Abdominal aorta is normal in caliber. REPRODUCTIVE ORGANS: Unremarkable. PERITONEUM/RETROPERITONEUM: No ascites or pneumoperitoneum. ABDOMINAL WALL/SOFT TISSUES: Unremarkable. BONES: Mild degenerative changes in the spine. Procedure Note Paulie Machado MD - 07/22/2023 EXAM EXAM: CT ABD/PELVIS W IV CONTRAST - WO ORAL CONTRAST DATE and TIME: 07/22/2023 - 07/22/2023 12:09 pm HISTORY "LUQ pain elebaed lipase, transaminitis" TECHNIQUE Oral Contrast: Oral contrast was not administered. IV Contrast: IV contrast was used. Abdomen/Pelvis: with intravenous contrast COMPARISON 11/18/2008 FINDINGS LOWER CHEST: HEART (visualized): Normal in size. LUNG BASES: Clear. ABDOMEN/PELVIS: LINES AND DEVICES: None. LIVER: Unremarkable. BILE DUCTS: Unremarkable. GALLBLADDER: Unremarkable. PANCREAS: Unremarkable. SPLEEN: Unremarkable. ADRENALS: Unremarkable. KIDNEYS/URETERS: Unremarkable. BLADDER: Unremarkable. BOWEL: Gastric bypass. No bowel obstruction. Large amount of fecalmaterial in the colon, compatible with constipation. LYMPH NODES: No intra-abdominal or intrapelvic lymphadenopathy. VESSELS: Abdominal aorta is normal in caliber. REPRODUCTIVE ORGANS: Unremarkable. PERITONEUM/RETROPERITONEUM: No ascites or pneumoperitoneum. ABDOMINAL WALL/SOFT TISSUES: Unremarkable. BONES: Mild degenerative changes in the spine. IMPRESSION IMPRESSION No acute CT findings. Ayla Vicente PA-C RAD CT * (ABNORMAL) HEPATIC FUNCTION PANEL (07/22/2023 9:08 AM EST) Albumin 4.4 3.8 - 5.0 g/dL 07/22/2023 11:01 AM EST [facility] 56-02 AST 30 10 - 35 U/L 07/22/2023 11:01 AM EST [facility]-02 Alkaline Phosphatase 108 35 - 130 U/L 07/22/2023 11:01 AM EST [facility] 56-02 ALT 42(H) 10 - 35 U/L 07/22/2023 11:01 AM EST [facility] 56-02 Bilirubin, Total 0.2 <=1.2 mg/dL 07/22/2023 11:01 AM [facility] 56- Bilirubin, Direct <0.2 0.0 - 0.3 mg/dL 07/22/2023 11:01 AM [facility] 56-02 Protein 6.5 6.0 - 8.3 g/dL 07/22/2023 11:01 AM [facility] 56-02 Blood Venous blood specimen / Unknown Venipuncture / Unknown 07/22/2023 9:08 AM EST 07/22/2023 9:08 AM EST Ayla Vicente PA-C LAB BLOOD ORD ERABLES [facility] [address] documented in this encounter Visit Diagnoses Diagnosis LUQ pain- Primary Abdominal pain, left upper quadrant Transaminitis Nonspecific elevation of levels of transaminase or lactic acid dehydrogenase (LDH) Elevated lipase Other nonspecific abnormal serum enzyme levels documented in this encounter Care Teams Sql Report Developer Relationship Specialty Start Date End Date Bin Neely III, MD [address] [facility] [address] PCP - General 03/22/1996 documented as of this encounter
--- OUTSIDE RECORDS SUMMARY | 2023-11-25 19:58 | External Medical Summary | Summary of Care ---
Author Name Unknown Organization [facility] Address [address] [place] [address] Phone [phone] Care Team Providers Care Daycare Teacher Name Role Phone Chin LAMB MD, Bin Truong Primary Care Provider [phone] Reason for Visit * Reason Comments Outpatient Testing Encounter Details Date Type Department Care Team (Late st Contact Info) Description 07/18/2023 2:40 PM EST Laboratory [facility] [place] [address] [place] [phone] [place], Lab Scenery [address] [place] [address] Iron deficiency anemia, unspecified iron deficiency anemia type; Primary cutaneous marginal zone B-cell lymphoma (HCC) [...] ANXIETY 60 Tab 0 02/15/2019 Active Ipratropium [place] 0.03 % Nasal Solution (Atrovent) Administer 2 [...] A1c goal of less than 7.0% ([facility]) Inject 2.5 mg under the skin once [...] 06/07/2003 03/29/2017 Excessive menstruation 10/17/200006/08 MV COLLISION NOS-PEDIATRIC CARDIOLOGIST 08/2017 documented as of this encounter (statuses as of 07/18/2023) Immunizations Name Administration Dates Next Due COVID-19 mRNA, LNP-s, No Pre serve, 2-Dose Series ([employer]) 11/21/2021,12/06/2020,11/15/2020 Hepatitis B Vaccine, Recombi nant, Adjuvanted, 20 mcg/mL (Heplisav-B) 03/14/2023 Hepatitis B, 20+ yrs 05/16/2023 Pneumococcal Conjugate Vacci ne, 20-valent ([id number]) 03/14/2023 Pneumococcal Polysaccharide PPV23 (Pneumovax) 08/12/2009 SEASONAL [...] 09/19/2023 10:00 AM EST Immunization/Inje ction Ancillary [facility] [address] [place] [address] [address] Nurse Rodolfo Hendrickson [facility] [address] [place] [address] 12/14/2023 8:40 AM EDT Office Visit Nutrition & Weight Management, [facility] [address] [facility] [place] [place] [address] Belén Triana PA-C [address] [facility] [place] [address] 01/05/2024 9:20 AM EDT [facility] [address] [place] [address] Tena Yost MD [address] [place] [address] 01/17/2024 1:00 PM EDT Office Visit Hematology/Oncology [facility] [address] [place] [address] [address] Anil Franz MD 200 [facility] [place] [address] Pending Results Name Type Priority Associated Diagnoses Date /Time LIPASE Lab Routine Iron deficiency anemia, unspecified iron deficiency anemia type Primary cutaneous marginal zone B-cell lymphoma (HCC) 07/18/2023 2:20 PM EST Scheduled Procedures Name Priority Associated Diagnoses [...] Ratio 02/21/2022 02/21/2021 COVID-19 Vaccine (4 - season) 2023 11/21/2021, 12/06/2020, 11/15/2020 Hepatitis B [...] sites documented in this encounter Care Teams Daycare Teacher Relationship Specialty Start Date End Date Bin Neely III, MD [address] [facility] [place] [address] PCP - General 03/22/1996 documented as of this encounter
--- OUTSIDE RECORDS SUMMARY | 2023-11-25 19:59 | External Medical Summary ---
Author Name Unknown Address Unknown Organization : Laboratory Report Ordering Provider Test Date Status MINERVA MTZ 06/15/2023 09:41:50 Final Observation Date Value Abnormality Reference (Units ) Status METHYLMALONIC ACID 06/15/2023 09:41:50 230 8 7-318 (nmol/L) Final This test was developed and its analytical performance
characteristics have been determined by [facility] [place], [place]. It has
not been cleared or approved by the U.S. Food and Drug
Administration. This assay has been validated pursuant
to the CLIA regulations and is used for clinical
purposes.

Test Performed at:
[facility]
[address]
[place] [address]
Kalia Bean M.D., Ph.D.,Director of Laboratories Performing Location
--- OUTSIDE RECORDS SUMMARY | 2023-11-25 19:59 | External Medical Summary ---
Author Name Unknown Address Unknown Organization : Laboratory Report Ordering Provider Test Date Status MINERVA MTZ 06/15/2023 09:41:50 Final Observation Date Value Abnormality Reference (Units ) Status Thiamine [Moles/volume] in Blood 06/15/2023 09:41:50 158 78-185 (nmol/L) Final Vitamin supplementation with in 24 hours prior to
blood draw may affect the accuracy of the results.
This test was developed and its analytical performance
characteristics have been determined by [facility] [place], [place]. It has
not been cleared or approved by the U.S. Food and Drug
Administration. This assay has been validated pursuant
to the CLIA regulations and is used for clinical
purposes.

Test Performed at:
[facility]
[address]
[place] [address]
Kalia Bean M.D., Ph.D.,Director of Laboratories Performing Location
--- OUTSIDE RECORDS SUMMARY | 2023-11-25 19:59 | External Medical Summary ---
Author Name Unknown Address Unknown Organization : Laboratory Report Ordering Provider Test Date Status MINERVA MTZ 06/15/2023 09:41:50 Final Observation Date Value Abnormality Reference (Units ) Status Vitamin A, level 06/15/2023 09:41:50 49 38- 98 (mcg/dL) Final Vitamin supplementation with in 24 hours prior to
blood draw may affect the accuracy of the results.
This test was developed and its analytical performance
characteristics have been determined by [facility] [place], [place]. It has
not been cleared or approved by the U.S. Food and Drug
Administration. This assay has been validated pursuant
to the CLIA regulations and is used for clinical
purposes.

Test Performed at:
[facility]
[address]
[place] [address]
Kalia Bean M.D., Ph.D.,Director of Laboratories Performing Location
--- OUTSIDE RECORDS SUMMARY | 2023-11-25 19:59 | External Medical Summary ---
Author Name Unknown Address Unknown Organization : Laboratory Report Ordering Provider Test Date Status MINERVA MTZ 06/15/2023 09:41:50 Final Observation Date Value Abnormality Reference (Units ) Status Copper 06/15/2023 09:41:50 145 70-175 (mc g/dL) Final This test was developed and its analytical performance
characteristics have been determined by [facility]
[place], [place]. It has
not been cleared or approved by the U.S. Food and Drug
Administration. This assay has been validated pursuant
to the CLIA regulations and is used for clinical
purposes.

Test Performed at:
[facility]
[address] [facility] [facility]
[place] [address]
Kalia Bean M.D., Ph.D.,Director of Laboratories Performing Location
--- OUTSIDE RECORDS SUMMARY | 2023-11-25 19:59 | External Medical Summary | Summary of Care ---
Author Name Unknown Organization [facility] Address [address] [place] [address] Phone [phone] Care Team Providers Care Pipe Threading Machine Operator Name Role Phone Chin LAMB MD, Bin Truong Primary Care Provider [phone] Reason for Visit * Reason Comments Emergency Department Follow-Up Encounter Details Date Type Department Care Team (Late st Contact Info) Description 06/20/2023 10:40 AM EST Office Visit Family Practice [facility] [address] [place] [address] Bin Neely III, MD [address] [place] [address] Fall, initial encounter*; Type 2 diabetes mellitus with diabetic neuropathy, unspecified whether snf insulin use (HCC); Cervical spondylosis; Flank pain Allergies Active Allergy Reactions Criticality Noted Date Comments Erythromycin Rash 06/02/2000 documented as of this encounter (statuses as of 06/23/2023) Medications Medication Sig Dispensed Refills Start Date End Date Status MULTIVITAMINS PO TABSIndications:Es ophageal reflux Take by mouth 2 times a day. 0 10/29/2005 Active VITAMIN D 2000 UNIT PO TABS daily 0 Active EXCEDRIN TENSION HEADACHE 500-65 MG PO TABS as needed 0 Active VITAMIN B-12 2500 MCG SL SUBL 5000mcg daily 0 Active ONETOUCH ULTRA BLUE STRPIndications:Po stgastric surgery syndromes Use up to four times a day as directed 100 Strip 11 2014 Active albuterol (VENTOLIN HFA) 108 (90 BASE) MCG/ACT inhalerIndications :Dyspnea Inhale 2 Puffs by mouth 4 times a day. 1 Inhaler 3 12/30/2017 Active LORAzepam (ATIVAN) 0.5 MG TabletIndications: Anxiety state TAKE ONE TABLET BY MOUTH 2 TIMES A DAY NEEDED ANXIETY 60 Tab 0 02/15/2019 Active Ipratropium Mays 0.03 % Nasal Solution (Atrovent) Administer 2 [...] Active Triamcinolone Acetonide 0.1 % External Cream (Aristocort)Indica tions:Rash and nonspecific skin eruption Apply to rash twice daily for two weeks. Avoid face and groin. Repeat as needed but give at least one week break before repeating. 454 g 1 01/10/2023 Active Mounjaro 2.5 MG/0.5ML Subcutaneous Solution Pen-injector (Tirzepatide)Indic ations:Type 2 diabetes mellitus with hemoglobin A1c goal of less than 7.0% ([facility]) Inject 2.5 mg under the skin once a week. 2 mL 11 06/15/2023 4 Active Psyllium 0.52 GM Oral Capsule at bedtime. 0 06/15/2023 Active Cyclobenzaprine HCl 10 MG Oral Tablet (Flexeril)Indicati ons:Cervical spondylosis Take 0.5-1 Tablets by mouth in the morning and 0.5-1 Tablets at noon and 0.5-1 Tablets before bedtime. 30 Tablet 5 06/20/2023 Active Cyclobenzaprine HCl 10 MG Oral Tablet (Flexeril)Indicati ons:Cervical spondylosis Take by mouth 0.5-1 Tablets in the morning AND 0.5-1 Tablets at noon AND 0.5-1 Tablets before bedtime. 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 documented as of this encounter (statuses as of 06/23/2023) Immunizations Name Administration Dates Next Due COVID-19 mRNA, LNP-s, No Pre serve, 2-Dose Series (Pfizer) 11/21/2021,12/06/2020,11/15/2020 Hepatitis B Vaccine, Recombi nant, Adjuvanted, 20 mcg/mL (Heplisav-B) 03/14/2023 Hepatitis B, 20+ yrs 05/16/2023 Pneumococcal Conjugate Vacci ne, 20-valent ([id number]) 03/14/2023 Pneumococcal Polysaccharide PPV23 (Pneumovax) 08/12/2009 SEASONAL [...] Sign Reading Time Taken Comments Blood Pressure 98/60 06/20/2023 10:37 AM EST Pulse 79 06/20/2023 10:37 AM EST Temperature 36.7 C (98.1 F) 06/20/2023 10:[address] Respiratory Rate 16 06/20/2023 10:37 AM EST Oxygen Saturation 100% 06/20/2023 10:37 AM EST Inhaled Oxygen Concentration - - Weight 47.4 kg (104 lb 9.6 oz) 06/20/2023 10:37 AM EST Height 154.9 cm (5' 1") 06/20/2023 10:37 AM EST Body Mass Index 19.76 06/20/2023 10:37 AM EST documented in this encounter Functional Status [...] as of this encounter Progress Notes * Sauk III, Bin Truong MD - 06/20/2023 10:56 AM EST Subjective: Abida Mayberry is a 58 year old female. 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 Localized adiposity E65 ADVANCE DIRECTIVE INFORMATION Other allergic rhinitis J30.89 EXT ASTHMA W-O STAT ASTH J45.909 ABDOMINAL/HIP PANNICULITIS M79.3 Hypertrophic and atrophic condition of skin L91.9, L90.9 Iron deficiency anemia D50.9 Anxiety state F41.1 Other specified hypothyroidism E03.8 Pernicious anemia D51.0 Lumbar radiculopathy M54.16 Cervical spondylosis M47.812 Type 2 diabetes mellitus with hemoglobin A1c goal of less than 7.0% ([facility]) E11.9 Primary cutaneous marginal zone B-cell lymphoma ([facility]) C88.4 Type 2 diabetes mellitus with diabetic neuropathy ([facility]) E11.40 Current Outpatient Medications Medication Sig Dispense Refill [...] DAY NEEDED ANXIETY 60 Tab 0 Ipratropium Mays 0.03 % Nasal Solution (Atrovent) Administer 2 [...] No current facility-administered medications for this visit. Review of patient's allergies indicates: Allergen Reactions Erythromycin Rash Past Medical History: Diagnosis Date Allergic rhinitis [...] FACET INJ, 1 LEVEL performed by Hi Stinson, at OR [facility] CARPAL TUNNEL SURGERY right COLONOSCOPY 2011 COLONOSCOPY, DIAGNOSTIC (RECTUM) 08/24/2022 prep-fair / normal scope, non-bleeding hemorrhoids / no specimens collected / 5 year recall / COLONOSCOPY FLEXIBLE PROXIMAL DIAGNOSTIC performed by Jasmin Mendes MD at ENDOSCOPY [facility] COLONOSCOPY, OUTSIDE PROCEDURE 03/10/2012 done at [facility] DENTAL SURGERY PROCEDURE NEC Dental Surgery Procedure EGD, FLEXIBLE, DIAGNOSTIC 11/25/2017 normal bx/ESOPHAGOGASTRODUODENOSCOPY (EGD), FLEXIBLE, TRANSORAL, DIAGNOSTIC performed by Jasmin Mendes MD at ENDOSCOPY [facility] GASTRIC BYPASS FOR OBESITY 01/2004 GASTRIC BYPASS FOR OBESITY 2004 INFORMATION labor and delivery x2 MAMMOGRAM - BILATERAL 10/29/2002 birad code 1 MAMMOGRAM - BILATERAL 01/12/2007 birad code 2 PAP SCREEN 12/03/2010 negative for malignancy REMOVE EXCESSIVE SKIN, OTHER AREA 10/03/2006 EXCISION EXCESSIVE SKIN AND SUBCUTANEOUS TISSUE OTHER performed by GRACIA CUMMINGS at OR [facility] [place] REMOVE EXCESSIVE SKIN/TISSUE, ARM 10/03/2006 EXCISION EXCESSIVE SKIN AND SUBCUTANEOUS TISSUE ARM performed by GRACIA CUMMINGS at OR [facility] [place] REMOVE EXCESSIVE SKIN/TISSUE, THIGH 10/03/2006 EXCISION EXCESSIVE SKIN AND SUBCUTANEOUS TISSUE THIGH performed by GRACIA CUMMINGS at OR [facility] [place] REMOVE TONSILS & ADENOIDS, AGE 12+ Tonsillectomy/Adenoids,12+ Y/O REPAIR INITIAL INGUINAL HERNIA REDUCIBLE AGE 5 OR MORE 2004 SUCTION REMOVE FAT TISSUE, ARMS 10/03/2006 SUCTION ASSISTED LIPECTOMY UPPER EXTREMITY performed by GRACIA CUMMINGS at OR [facility] [place] SUCTION REMOVE FAT TISSUE, LEGS 10/03/2006 SUCTION ASSISTED LIPECTOMY LOWER EXTREMITY performed by GRACIA CUMMINGS at OR [facility] [place] TISSUE TRANSFER, LARGE/COMPLICATED 10/03/2006 ADJACENT TISSUE TRANSFER 30 PLUS SQ CM UNUSUAL performed by GRACIA CUMMINGS at OR [facility] [place] UTERINE LEIOMYOMA US ABLAT,<200CC 01/11/2011 Objective: The patient is a 58 year old female BP 98/60 | Pulse 79 | Temp 36.7 C (98.1 F) (Tympanic) | Resp 16 | Ht 1.549 m (5' 1") | Wt 47.4 kg (104 lb 9.6 oz) | SpO2 100% | BMI 19.76 kg/m | BSA 1.43 m General: alert Lungs: lungs clear to auscultation Quadratus and abdominal flank muscle tenderness as well as over lower ribs which is worse ASSESSMENT: W19.XXXA Fall, initial encounter (primary encounter diagnosis) E11.40 Type 2 diabetes mellitus with diabetic neuropathy, unspecified whether terminal operator insulin use([facility]) M47.812 Cervical spondylosis R10.9 Flank pain PLAN: Use arthritis Tylenol for longer duration switch to a leave as this interferes with sleep Flexeril as needed ice keep in touch Follow up as needed. Bin Neely III, MD documented in this encounter Nursing Notes * Lisa Hanson, BALJEET - 06/20/2023 10:36 AM EST Patient presents today for an ER follow up. She said that she wanted to discuss the pain from her fracturing her ribs. documented in this encounter Plan of Treatment Upcoming Encounters Date Type Department Care Team (Late st Contact Info) Description 07/09/2023 8:00 AM EST Laboratory Laboratory, [facility] [address] [facility] [place] [phone] [facility] [address] [facility] [place] [address] 07/18/2023 2:00 PM EST Office Visit Hematology/Oncology [facility] [address] [place] [address] Anil Franz MD [address] [place] [address] 09/19/2023 10:00 AM EST Immunization/Injecti on Ancillary [facility] [place] [address] [place] [address] Nurse Madhavi Fam [facility] [address] [facility] [place] [address] 12/14/2023 8:40 AM EDT Office Visit Nutrition & Weight Management, [facility] [address] [facility] [place] [address] Belén Triana PA-C [address] [facility] [place] [address] 01/05/2024 9:20 AM EDT Office Visit Dermatology Germain Garcia [address] [place] [address] Tena Yost MD [address] [place] [address] Scheduled Procedures Name Priority Associated Diagnoses Date/Ti [...] as of this encounter Visit Diagnoses Diagnosis Fall, initial encounter- Primary Type 2 diabetes mellitus with diabetic neuropathy, unspecified whether snf insulin use (HCC) Cervical spondylosis Cervical spondylosis without myelopathy Flank pain Abdominal pain, unspecified site documented in this encounter Care Teams Pipe Threading Machine Operator Relationship Specialty Start Date End Date iBn Neely III, MD [address] [facility] [place] [address] PCP - General 03/22/1996 documented as of this encounter
--- OUTSIDE RECORDS SUMMARY | 2023-11-25 20:00 | External Medical Summary ---
Author Name Unknown Address Unknown Organization : Laboratory Report Ordering Provider Test Date Status MINERVA MTZ 06/15/2023 09:41:50 Final Observation Date Value Abnormality Reference (Units ) Status Zinc, level 06/15/2023 09:41:50 64 60-130 ( mcg/dL) Final This test was developed and its analytical performance
characteristics have been determined by [employer] [place], [place]. It has
not been cleared or approved by the U.S. Food and Drug
Administration. This assay has been validated pursuant
to the CLIA regulations and is used for clinical
purposes.

Test Performed at:
[facility]
[address] [facility]
[place] [address]
Kalia Bean M.D., Ph.D.,Director of Laboratories Performing Location
[2023-11-25] MEDS: FAMOTIDINE 20 MG TAB PO SCH (20:05)
--- NOTE | 2023-11-26 05:49 | Electrocardiogram Report ---
Test Reason : Blood Pressure : / mmHG Vent. Rate : 068 BPM Atrial Rate : 068 BPM P-R Int : 140 ms QRS Dur : 084 ms QT Int : 394 ms P-R-T Axes : 072 077 066 degrees QTc Int : 418 ms Normal sinus rhythm Normal ECG When compared with ECG of 11-MAR-2013 13:33, No significant change was found Confirmed by Avila Hartley ([id number]) on 11/26/2023 5:48:54 AM Referred By: REFERRED SELF Confirmed By:Gordon Hartley
[2023-11-26 06:37] LABS: Basophils # (auto) 0.02 K/uL (0.00-0.20); Basophils % (auto) 0.7 %; Hematocrit (blood only) 32.6 % (37.0-47.0); Hemoglobin 11.5 g/dl (12.0-16.0); Lymphocytes # (auto) 1.25 K/uL (1.20-3.40); Lymphocytes % (auto) 41.5 %; Mean Corpuscular Hemoglobin 34.1 pg (25.0-34.0); Mean Corpuscular Hgb Conc 35.3 g/dL (32.0-36.0); Mean Corpuscular Volume 96.7 fL (80.0-100.0); Mean Platelet Volume 10.3 fL (9.4-12.4); Monocytes # (auto) 0.29 K/uL (0.11-0.59); Monocytes % (auto) 9.6 %; Neutrophils # (auto) 1.15 K/uL (1.40-6.50); Neutrophils % (auto) 38.2 %; Platelet Count 189 K/uL (130-400); RDW Coefficient of Variation 12.1 % (11.5-14.5); RDW Standard Deviation 43.3 fL (36.4-46.3); Red Blood Count 3.37 M/uL (4.20-5.40); White Blood Count 3.01 K/ul (4.8-10.8)
[2023-11-26 06:42] LABS: Albumin Globulin Ratio 1.7 (0.9-2); Albumin Level 3.3 gm/dl (3.4-5.0); BUN Creatinine Ratio 11.4 (10-20); Bilirubin,Total 0.4 mg/dl (0.2-1.0); Calcium 8.8 mg/dl (8.6-10.3); Chol HDL Ratio 1.9 (0-5); Creatinine Clr Calc Pharmacy 51.3 ml/min; Est GFR (African American) 82.8 ml/min; Est GFR (Non-African American) 71.4 ml/min; Globulin 1.9 gm/dl (2.5-4.0); Potassium 4.3 mmol/L (3.5-5.1); Total Protein 5.2 gm/dl (6.0-8.3)
--- NOTE | 2023-11-26 10:26 | Gastroenterology Progress Note ---
Date of Service November 26, 2023 Assessment & Plan (1) Abdominal pain: (2) History of Ethan-en-Y gastric bypass: (3) Elevated lipase: Plan: Continue current therapy and supportive care Will add a small dose of Reglan 5 mg by mouth 1/2 hour prior to breakfast and dinner. Discussed risk of side effects from Reglan including but not limited too: Tardive dyskinesia including lip smacking, tremor, pill rolling, which can be irreversible. Also worsening of depression and anxiety. Patient verbalized understanding of risk and wished to proceed with trial of medication. Will need outpatient EGD with [facility] upon discharge Admission and Anticipated Discharge Date Admission Date: November 24, 2023 Subjective She is feeling slightly better today. States that her pain has improved. Does note nausea following a meal. States that, "food doesn't seem to move through my system after eating, it just sits in my stomach, and then all moves at once." She denies any fevers, chills, vomiting, hematemesis, melena, or hematochezia. She has no further complaints. Review of Systems Review of Systems: All systems reviewed & are unremarkable except as noted in Subjective Physical Exam Constitutional: WD/WN, vitals as above Respiratory: normal respiratory effort, lungs clear to auscultation Cardiovascular: RRR, no murmur, no edema Gastrointestinal (Abdomen): normal bowel sounds, soft, nontender, no hepatosplenomegaly Results & Data Results & Data Vital Signs (Past 12 Hours) Vital Signs Temp Pulse Resp BP BP Pulse Ox O2 Del Method 11/26/23 06:59 37.0 C 68 15 99/63 L 98 Room Air 11/25/23 23:54 36.6 C 74 20 96/58 L 97 Room Air PG Care Time/CCT Total # of Minutes Spent Total Time Spent with Patient: Total time spent is greater than 50% in coordination of care (as documented) at patient's floor/unit and/or counseling patient: Coding Level of Care Code 14357 SUB INP/OBS CARE 3/50MIN Diagnoses Abdominal pain R10.9 Abdominal location: unspecified location History of Ethan-en-Y gastric bypass Z98.84 Elevated lipase R74.8 (1) Abdominal pain Abdominal location: unspecified location Qualified Code(s): R10.9 - Unspecified abdominal pain
[2023-11-26] MEDS: METOCLOPRAMIDE HCL 5 MG TABLET PO SCH (11:25)
--- NOTE | 2023-11-26 13:26 | Hospitalist Progress Note ---
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 CT A/P negative for pancreatitis but possible enteritis. Had diarrhea few days back. Lipase 380, normalized today. Seen by GI- recommendations noted. Diet advanced today. Reglan added by GI. On PPI, pepcid and carafate per GI and plan for OP EGD noted. GI panel and C diff if she has diarrhea. H/o Ethan-en-Y gastric bypass- on Mounjaro Mood disorder- on bupropion/duloxetine DVT ppx- sc lovenox Dispo- pending symptomatic improvement Time spent- approx 35 mins Admission and Anticipated Discharge Date Admission Date: November 24, 2023 Subjective Patient was seen and examined at bedside. Pain better but still with nausea with food intake. No vomiting but she feels like she had to vomit. She stated she did eat more than what she normally does at home and it is possible that it was too much for her stomach given her gastric bypass. No other issues. Review of Systems Review of Systems: All systems reviewed & are unremarkable except as noted in Subjective Physical Exam Physical Exam: General: Lying comfortably in bed, not in distress, on room air HEENT: EOMI, MARIALUISA, MMM Chest: Clear breath sounds bilaterally, no wheezes or crackles CVS: Regular rate and rhythm, normal heart sounds, no murmur Abdomen: Soft, not distended, normal bowel sounds Neuro: Awake, alert, oriented, conversing well, non focal Extremities: No cyanosis, clubbing or edema Results & Data Results & Data Vital Signs (Past 12 Hours) Vital Signs Temp Pulse Resp BP Pulse Ox O2 Del Method 11/26/23 06:59 37.0 C 68 15 99/63 L 98 Room Air Laboratory Results Short CBC 11/26/23 Range/Units 06:11 WBC 3.01 L (4.8-10.8) K/ul Hgb 11.5 L (12.0-16.0) g/dl Hct 32.6 L (37.0-47.0) % Plt Count 189 (130-400) K/uL BMP 11/26/23 06:11 Sodium 142 Potassium 4.3 Chloride 109 H Carbon Dioxide 31 BUN 10 Creatinine 0.88 Glucose 80 Calcium 8.8 Liver Function 11/26/23 Range/Units 06:11 Total Bilirubin 0.4 (0.2-1.0) mg/dl AST 21 (13-39) U/L ALT 26 (7-52) U/L Alkaline Phosphatase 68 (34-104) U/L Albumin 3.3 L (3.4-5.0) gm/dl (1) Abdominal pain Abdominal location: unspecified location Qualified Code(s): R10.9 - Unspecified abdominal pain
[2023-11-26] MEDS ORDERED: Nursing to Pharmacy Communication SCH (15:15)
--- NOTE | 2023-11-26 15:37 | Discharge Summary ---
Date of Service November 26, 2023 Admission HPI Per Admitting Provider History obtained from patient, family, and records. Medical history significant for history gastric bypass, NAFLD, hypothyroidism, reactive hypoglycemia on Mounjaro, STELLA not on CPAP, anxiety/mood disorder. Few weeks history of sinus congestion symptoms and postnasal drip. Occasional burning sensation in the throat. Patient seen at PCPs office last week. Augmentin course prescribed for possible sinusitis. Protonix prescribed for possible GERD. Diarrhea symptoms noted at home without unusual abdominal pain. GERD symptoms actually improved as per patient. No fever, no chills. This afternoon, patient noted epigastric discomfort going to her back. Some nausea symptoms. No chest pain, no SOB. Patient brought to ER by for evaluation. 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 Admission Exam Per Admitting Provider GENERAL: Comfortable, pleasant, no respiratory distress SKIN: Normal color, warm HEENT: [place] palpebral conjunctivae, no ptosis, dry buccal mucosa NECK : Supple, no tenderness CHEST : CTA, no tenderness HEART : RRR, no obvious murmurs ABDOMEN: no distention, epigastric tenderness EXTREMITIES : No LE swelling/tenderness, no other conspicuous deformities noted NEUROLOGIC : Coherent, no facial asymmetry, no other gross focality Principal Diagnosis Abdominal pain, nausea Discharge Exam General: Lying comfortably in bed, not in distress, on room air HEENT: EOMI, MARIALUISA, MMM Chest: Clear breath sounds bilaterally, no wheezes or crackles CVS: Regular rate and rhythm, normal heart sounds, no murmur Abdomen: Soft, not distended, normal bowel sounds Neuro: Awake, alert, oriented, conversing well, non focal Extremities: No cyanosis, clubbing or edema Discharge Data Allergies Allergy/AdvReac Type Severity Reaction Status Date / Time erythromycin base Allergy Intermediate FULL BODY Verified 06/15/23 22:05 REDDENED RASH Consultations 11/24/23 21:29 ED Decision to Admit Stat 11/25/23 10:21 Consult Gastroenterology Routine Ordered Studies 11/24/23 20:32 CT abd pelvis IV con only Stat 11/24/23 22:05 US gallbladder Stat Hospital Course (1) Abdominal pain: (2) Elevated lipase: (3) History of Ethan-en-Y gastric bypass: Plan 58 year old female with h/o Ethan-en Y presented with abdominal pain and 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 Had an episode of diarrhea few days back. Work up in the ED rafael ws normal labs except for mildly elevated lipase (quickly normalized) but no evidence of pancreatitis in CT, but possible small bowel enteritis. Managed with iv fluids, bowel rest, clear diet and advanced as tolerated. She was seen by GI with addition of pepcid and sucralfate to her PPI. She was still having nausea and hence reglan was added by GI with significant improvement in her symptoms. No more nausea or abd pain. Tolerated diet well. Had small BM here but no diarrhea. GI recommended OP follow up with [facility] for EGD. She is anxious to go home. She is comfortable and stable for discharge. was at bedside. Discharging on reglan and sucralfate along with PPI. She will follow up with PCP and GI upon discharge. Total Time Total Time Spent Total Time Spent (In Minutes): 38 Discharge Plan Discharge Items Patient Disposition: Home - Self-Care Reason For Visit: ABD PAIN Discharge Diagnosis: Abdominal pain Activity: Resume your previous activity Non-emergency contact: Primary Care Provider and Legal Collector Call non-emergency contact if: you have any medication questions, your symptoms worsen, your pain is concerning for you and you have a fever Follow-up/Referrals: Bin Neely MD [Primary Care Provider] - Diet: Low Fat Addtl Attending Provider Instructions: Encourage small frequent meals. Reglan half hour before food for the nausea. Follow up with GI as outpatient for EGD Follow up with the family doctor Pending Studies at Discharge: No Stand-Alone Forms: My [employer], Smoking Cessation Medications and DC Order Prescriptions: New sucralfate 100 mg/mL Suspension 1 g PO QID 7 Days Qty: 280 0RF metoclopramide HCl 5 mg Tablet 5 mg PO BID 5 Days Qty: 10 0RF Continued bupropion HCl [Wellbutrin SR] 150 mg tablet sustained-release 12 hr 150 mg PO AMHS cyanocobalamin (vitamin B-12) [Vitamin B-12] 2,500 mcg Tablet, Sublingual 2,500 mcg SUBLINGUAL DAILY psyllium husk 0.52 gram Capsule 1.04 g PO HS duloxetine 30 mg capsule,delayed release(DR/EC) 30 mg PO DAILY calcium citrate 250 mg calcium Tablet 250 mg PO BID cholecalciferol (vitamin D3) [Vitamin D3] 50 mcg (2,000 unit) Capsule 50 mcg PO DAILY hl-pf-dikq-FA-Ca carb-vit K 18 mg iron-400 mcg-500 mg Tablet 1 tab PO BID Mounjaro 2.5 mg/0.5 mL pen injector 2.5 mg SUBCUT WK Rx Instructions: sundays pantoprazole 40 mg tablet,delayed release (DR/EC) 40 mg PO BID cyclobenzaprine 10 mg tablet 10 mg PO UD PRN (Reason: Muscle Spasm) Discontinued amoxicillin-pot clavulanate 875-125 mg tablet 1 tab PO AMHS Rx Instructions: take for 10 days ordered 11/26/23 Discharge Orders: Discharge Order (Routine); Ordered 11/26/23 Ordered By: Jake Gallegos Admission Data Admit Date/Time: 11/24/23 22:08 Attending Provider: Jake Gallegos Admit Provider: Ole Owen Primary Care Provider: Bin Neely Other Providers: Ole Owen; Desean Dow Other Interventions: Discharge Summary Assessment (RN) Last Done: 11/26/23 15:28
[2023-11-26] MEDS ORDERED: METOCLOPRAMIDE HCL 5 MG TABLET PO SCH ×2 (16:30)
== END 2023-11-26 16:40 | disposition home or self-care (01) ==
LOC: 3N 16:36 → ED 16:36 → 3N 22:45